=== PATIENT | female | born 1950 | race Caucasian/White ===

== ENCOUNTER 2019-07-23 13:23 | Inpatient (IN) | payer MEDICARE, OTHER, SELFPAY ==
[2019-07-11 14:57] VITALS: BP 168/70; PULSE 85; RESP 18; TEMP 36.6; O2SAT 98; BMI 36.8
[2019-07-22] VITALS (12 sets, daily range): BP systolic 108–148; BP diastolic 64–80; PULSE 80–104; RESP 16–22; TEMP 36.5–37.3; O2SAT 93–100
[2019-07-22] MEDS: LACTATED RINGERS 1,000 ML 30 ML IV CONT ×2 (09:45→13:06)
[2019-07-22 09:56] LABS: Glucose Point of Care 108 (65-105)
--- NOTE | 2019-07-22 10:05 | WPDANESEPPF ---
Anes - Initial Pre Proc Eval Procedure: Operation Date: 07/22/19 11:00 Proposed Procedures p Right Total Knee Arthroplasty - Rogelio Salinas MD Date/Time: 07/22/19 10:05 Surgeon: Rogelio Salinas MD Pre Op Diagnosis: OA Right Knee Patient Data Age: 69 Gender: F Height: 1.52 m Weight: 83.5 kg Last Vital Signs Temp 36.6 C 07/11/19 14:57 Pulse 85 07/11/19 14:57 Resp 18 07/11/19 14:57 BP 168/70 H 07/11/19 14:57 Pulse Ox 98 07/11/19 14:57 Allergies Allergy/AdvReac Type Severity Reaction Status Date / Time No Known Allergies Allergy Verified 07/22/19 09:25 Home Medications Medication Instructions Recorded Confirmed Type acetaminophen [Tylenol Arthritis 650 mg PO Q12H PRN 07/11/19 07/22/19 History Pain] amlodipine 10 mg PO DAILY 07/11/19 07/22/19 History atorvastatin 80 mg PO DAILY 07/11/19 07/22/19 History budesonide-formoterol [Symbicort] 2 puff INHALATION Q12H 07/11/19 07/22/19 History hydrochlorothiazide 50 mg PO DAILY 07/11/19 07/22/19 History insulin glargine [Lantus U-100 10 unit SUBCUT HS 07/11/19 07/22/19 History Insulin] lisinopril 40 mg PO DAILY 07/11/19 07/22/19 History metformin 500 mg PO BID 07/11/19 07/22/19 History montelukast 10 mg PO HS 07/11/19 07/22/19 History oxybutynin chloride 15 mg PO HS 07/11/19 07/22/19 History ropinirole 2 mg PO HS 07/11/19 07/22/19 History venlafaxine 75 mg PO DAILY 07/11/19 07/22/19 History Laboratory Tests 07/22/19 09:53 POC Capillary Glucose 108 mg/dl mg/dl (65-105) ECG: SINUS RHYTHM LEFT AXIS DEVIATION POOR R WAVE PROGRESSION, ANTERIOR LEADS BASELINE ARTIFACT- I, II, AVR, V5-V6 BORDERLINE ECG Other Studies: Negative stress test Patient hx anesthesia problems: none Family hx anesthesia problems: none [facility] Past Medical History Medical History (Updated 07/22/19 @ 10:07 by Moy Linn DO) AAA (abdominal aortic aneurysm) stable - monitored COPD (chronic obstructive pulmonary disease) never smoker, secondary to asthma CVA (cerebral vascular accident) 09/2018 - affected peripheral vision Diabetes type 2, controlled Hyperlipidemia Hypertension FELICIA (obstructive sleep apnea) CPAP PUD (peptic ulcer disease) RLS (restless legs syndrome) Surgical History Surgical History (Updated 07/21/19 @ 15:34 by Moy Linn DO) History of Social History Social History Gender identity (if verbalized by the patient): Female Anes - Eval Final PreProcedure Day of Procedure 07/22/19 10:05 Patient weight: obese Heart: regular rate and rhythm Lungs: clear to auscultation and normal air movement Airway: Mallampati scale class III Neurological: alert and oriented Last oral intake: >/= 8 hours ASA classification: III Emergent: no Anesthetic plan: proceed Anesthesia type and monitoring: general LMA and standard monitoring Informed Consent: The patient's anesthetic plan and its attendant risks and benefits were discussed with the patient/family/POA. Questions were solicited and answers provided to the satisfaction of the patient/family/POA.
--- NOTE | 2019-07-22 10:08 | WPDANESPNB ---
Anes - Peripheral Nerve Block Date/Time: 07/22/19 10:08 I have discussed with the patient/family/POA the placement of a peripheral nerve block for post-operative pain management, including associated risks, benefits, complications, and side effects. Alternative methods of post-operative analgesia were detailed. Questions were solicited and answers provided to the satisfaction of the patient/family/POA. Time-Out: A pre-procedural Time-Out was completed immediately before starting the procedure and confirmed: Patient Identification, Site, Procedure, Patient Position and the Availability of Requisite Equipment. Clinical Indications: Acute post-operative pain management requested by the operative surgeon. Nerve Block Insertion Note Anes-nerve block: adductor canal right Patient position: supine Skin prep: chlorhexidine Needle: 22 gauge, stimulating, insulated echogenic needle. Needle length: 80 mm Technique: ultrasound Injectate: bupivacaine 0.5% with epi 5 mcg/ml (30cc) Observations: tolerated well Complications: none Procedure start time:: 1109 Procedure end time:: 111
--- NOTE | 2019-07-22 10:54 | SUR.PREOP ---
Resting without needs or complaints.
--- NOTE | 2019-07-22 11:04 | WPDHPUPDATE1 ---
History and Physical Update Update Date/Time: 07/22/19 11:04 History and Physical has been reviewed, including an updated exam of the patient. There are NO changes in the patient's condition. Risks, benefits, and alternatives have been discussed and questions answered. Patient agrees to proceed with procedure.
[2019-07-22] MEDS: ceFAZolin 2 GM/D5W 50 ML 2 GM/50 ML BAG IVPB (11:15)
[2019-07-22] MEDS: GENTAMICIN BONE CEMENT REFOBACIN 1 EACH TOPICAL (12:14)
--- NOTE | 2019-07-22 12:31 | PM.PROC ---
Procedure Note - Detailed Date of procedure: 07/22/19 Pre-op diagnosis: OA Right Knee Post-op diagnosis: same Procedure performed: [side] total knee arthroplasty Description of procedure: The patient was brought to the operating room. General anesthetic was administered. Placed on the operating table and sterilely prepped and draped in usual manner. A longitudinal incision was made. Tourniquet inflated to 300 mmHg for a total of [time] minutes. Dissection carried down to the fascia. Medial parapatellar incision was made and the patella subluxated laterally. Patella cut from [25] to [25] mm and sized for a [34] mm button. The tibia cut perpendicular to the long axis and femur cut in 5 degrees of valgus, a [62.5] femur trialed. [63] tibia was felt to fit the best. The soft tissue balanced, hemostasis obtained. All [address], [] tibia, [62.5] femur, [34] mm patella, and [34] mm poly. Motion was 0-125 degrees with good stablility and flexion and extension. The wound was closed with #2 vicryl, 2-0 Vicryl and laurent. Anesthesia: GETA Surgeon: Rogelio Salinas MD Learning Support Resource Room Teacher: Carrillo Connors Estimated blood loss (mL): 200 Drains: No Packing: No Pathology: none sent Complications: No immediate complications Condition: stable Disposition: PACU Findings: arthritis
--- NOTE | 2019-07-22 13:23 | SUR.PHASEI ---
1315; XRAYS DONE AT BEDSIDE
[2019-07-22 13:37] LABS: Glucose Point of Care 117 (65-105)
--- NOTE | 2019-07-22 13:48 | SUR.PHASEI ---
1345; SAO2 DROPS TO 85% ON ROOM AIR. RESP EVEN UNLABORED. P,W,D. O2 3L NC APPLIED.
--- NOTE | 2019-07-22 14:30 | PC.NURSE ---
This patient, Xin Rios, was admitted to [address] [facility] Surg Room 322-01. Patient/family oriented to hospital policies and general routines including ID bracelet, bed and alarms, visiting hours, pain management, procedures, bathroom and other care routines, personal items, smoking policy, room service/diet, and visiting hours. Valuables list has been completed. Information on how to activate the Rapid Response Team has been discussed. Patient/Family are encouraged to report perceived risks to care and to ask questions if they do not understand what they are told or what they should do.
--- NOTE | 2019-07-22 14:57 | PM.PROC ---
Procedure Note - Detailed Date of procedure: 07/22/19 Pre-op diagnosis: OA Right Knee Post-op diagnosis: same Procedure performed: [side] total knee arthroplasty Description of procedure: The patient was brought to the operating room. General anesthetic was administered. Placed on the operating table and sterilely prepped and draped in usual manner. A longitudinal incision was made. Tourniquet inflated to 300 mmHg for a total of [time] minutes. Dissection carried down to the fascia. Medial parapatellar incision was made and the patella subluxated laterally. Patella cut from [23] to [13] mm and sized for a [34] mm button. The tibia cut perpendicular to the long axis and femur cut in 5 degrees of valgus, a [62.5] femur trialed. [63] tibia was felt to fit the best. The soft tissue balanced, hemostasis obtained. All [address], [63] tibia, [62.5] femur, [34] mm patella, and [11] mm poly Posterior stabilized. Motion was 0-125 degrees with good stablility and flexion and extension. The wound was closed with #2 vicryl, 2-0 Vicryl and laurent. Anesthesia: GETA Surgeon: Rogelio Salinas MD Environmental Conservation Officer: Carrillo Connors Estimated blood loss (mL): 200 Drains: No Packing: No Pathology: none sent Complications: No immediate complications Condition: stable Disposition: PACU Findings: arthritis When putting in the femur, she seemed unstable, so I removed the Cruciate Retaining femoral component and placed a posterior stabilized component. This eliminated the posterior medial instability that didn't seem to be present when I trialed them
[2019-07-22] MEDS: SODIUM CHLORIDE 0.9% IV 1,000 ML 125 ML IV CONT (15:57)
[2019-07-22] MEDS: DOCUSATE SODIUM 100 MG CAPSULE PO (15:58)
[2019-07-22] MEDS: metFORMIN HCL 500 MG TABLET PO (15:59)
--- NOTE | 2019-07-22 16:00 | PM.IMCN ---
Assessment and Plan Assessment and plan (1) Status post total right knee replacement: Code(s): Z96.651 - Presence of right artificial knee joint Status: Acute Assessment and Plan: Postop care per Dr. Salinas. Management per Dr. Salinas. DVT prophylaxis per Dr. Salinas. Patient has been placed on Xarelto. Patient stated that she will go home and have the assistance of her family. (2) Diabetes type 2, controlled: Code(s): E11.9 - Type 2 diabetes mellitus without complications Status: Chronic Assessment and Plan: I did add sliding scale insulin and we can check her A1c. Patient has been restarted on her metformin per Ortho. Please monitor her BMP closely as she does appear to be somewhat dry today. Continue with her glargine. (3) Depression: Code(s): F32.9 - Major depressive disorder, single episode, unspecified Status: Chronic Assessment and Plan: Patient stated that is under control now with Effexor. (4) COPD (chronic obstructive pulmonary disease): Code(s): J44.9 - Chronic obstructive pulmonary disease, unspecified Status: Chronic Assessment and Plan: Continue with her inhaler and Singulair (5) FELICIA (obstructive sleep apnea): Code(s): G47.33 - Obstructive sleep apnea (adult) (pediatric) Status: Chronic Assessment and Plan: Titrate CPAP. (6) Hyperlipidemia: Code(s): E78.5 - Hyperlipidemia, unspecified Status: Chronic Assessment and Plan: Continue with Lipitor (7) Hypertension: Code(s): I10 - Essential (primary) hypertension Status: Chronic Assessment and Plan: Continue with amlodipine, lisinopril, and her hydrochlorothiazide per ortho HPI Data of Consult Consult date: 07/22/19 Requesting Physician: Rogelio Salinas MD Primary Care Provider: Jyoti Giraldo Consult Narrative Narrative: Xin Rios is a 69 year old female who suffers with severe osteoarthritis that is chronic and ongoing pain to the right knee. The patient has difficulty ambulating due to the discomfort she cannot stand or walk for long periods of time. Her pain has been increasing over time. She has tried conservative measures including cortisone therapy and anti-inflammatories without relief. She has advanced osteoarthritis. Patient presented today for a right total knee arthroplasty per Dr. Salinas please see his surgical notes. Date of consult is 07/22/2019 Review of Systems Review of Systems: All systems reviewed & are unremarkable except as noted in HPI and below Constitutional: Constitutional: Reports as per HPI and Reports no additional constitutional complaints Eyes: Eyes: Reports as per HPI and Reports no additional eye complaints ENT: Reports system reviewed and no additional complaints, except as documented and Reports Normal hearing present Cardiovascular: Cardiovascular: Reports no additional cardiovascular complaints Respiratory: Respiratory: Reports no additional respiratory complaints and Reports no additional respiratory complaints Gastrointestinal: Gastrointestinal: Reports as per HPI and Reports no additional gastrointestinal complaints Musculoskeletal: Musculoskeletal: Reports no additional musculoskeletal complaints Integumentary/Breasts: Skin/Breast: Reports system reviewed and no additional complaints, except as docu and Reports as per HPI Neurologic: Reports system reviewed and no additional complaints, except as documented, Reports as per HPI and Reports Normal hearing present Psychiatric: Psychiatric: Reports no additional psychiatric complaints and Reports as per HPI Endocrine: Endocrine: Reports no additional endocrine complaints Hematologic/Lymphatic: Hematologic/Lymphatic: Reports no additional hematologic/lymphatic complaints Allergic/Immunologic: Allergic/Immunologic: Reports no additional allergic/immunologic complaints PMFSH Past Medical History
[2019-07-22] MEDS: MORPHINE SULFATE 4 MG/ML INJ IV PUSH (18:46)
[2019-07-22 21:02] LABS: Glucose Point of Care 80 (65-105)
[2019-07-22] MEDS: RIVAROXABAN 10 MG TABLET PO (22:09)
[2019-07-22] MEDS: MONTELUKAST SODIUM 10 MG TABLET PO (22:09)
[2019-07-22 22:31] LABS: Glucose Point of Care 117 (65-105)
[2019-07-22] MEDS: INSULIN GLARGINE (*BKC) 100 UNITS/ML 10 UNITS SUB-Q (22:41)
[2019-07-23] VITALS (14 sets, daily range): BP systolic 128–148; BP diastolic 66–76; PULSE 79–110; RESP 18–22; TEMP 36.7–37.4; O2SAT 81–98
--- NOTE | ~2019-07-23 | US_ITS ---
EXAMINATION: US thyroid DATE: 07/25/2019 15:52 INDICATION: Goiter. TECHNIQUE: Multiple ultrasound images of the thyroid were obtained. COMPARISON: Chest CT 07/25/2019 FINDINGS: The right thyroid lobe measures 5.1 x 3.0 x 2.5 cm. The left thyroid lobe measures 4.5 x 2.7 x 2.2 c m. The thyroid is diffusely heterogeneous and nodular without normal intervening parenchyma. Vascula rity is normal. IMPRESSION: 1. Diffusely heterogeneous thyroid, likely not clinically significant. Reviewed, dictated and finalized at location B. ER [facility]
--- NOTE | ~2019-07-23 | CT_ITS ---
EXAMINATION: CTA chest PE protocol DATE: 07/25/2019 12:01 INDICATION: Shortness of breath. Chest tightness. TECHNIQUE: Computed tomography angiography (CTA) of the chest was performed with 100 mL Omnipaque-350 intravenous contrast timed to evaluate the pulmonary arteries. Coronal maximum intensity projection 3D-reconstructions were created by the technologist. Automated exposure control and iterative reconst ruction technique were employed. The dose-length product was 518.13 mGy-cm. COMPARISON: CT abdomen and pelvis 08/25/2017 FINDINGS: The lungs demonstrate mild atelectasis. No pleural effusion. There are nodules in the thyro id measuring up to 1.9 cm. The heart size is normal. There are coronary artery calcifications. No per icardial effusion. The central pulmonary arteries are enlarged, consistent with pulmonary arterial hy pertension. There is no pulmonary embolus. The gallbladder is distended. There is cortical thinning o f the kidneys. There is severe thoracic spondylosis. IMPRESSION: 1. No pulmonary embolus. Sensitivity is mildly decreased by motion artifact and suboptimal contrast t iming. 2. Multinodular goiter. Consider thyroid ultrasound for risk stratification. 3. Gallbladder distention, which may be secondary to fasting. Correlate with physical exam to exclude acute cholecystitis. Reviewed, dictated and finalized at location B. ESS CONTROL TECH IMPRESSION: 1. No pulmonary embolus. Sensitivity is mildly decreased by motion artifact and suboptimal contrast timing. 2. Multinodular goiter. Consider thyroid ultrasound for risk stratification. 3. Gallbladder distention, which may be secondary to fasting. Correlate with ph ysical exam to exclude acute cholecystitis.
--- NOTE | ~2019-07-23 | XR_ITS ---
EXAMINATION: XR chest 2V EXAM DATE: 07/23/2019 20:03 INDICATION: Chest tightness, hypoxia. History COPD. TECHNIQUE: Frontal and lateral projections of the chest obtained and reviewed. There is no prior misa dy for comparison. FINDINGS: The lungs are clear. There are no pleural effusions. The cardiomediastinal silhouette is within normal limits. There is no pneumothorax suspected. The bones and soft tissues are unremarkab le. IMPRESSION: No acute cardiopulmonary findings. Reviewed, dictated and finalized at location A. OMIC ADVISER
--- NOTE | ~2019-07-23 | XR_ITS ---
EXAMINATION: XR knee RT 2V DATE: 07/22/2019 13:22 INDICATION: Postoperative evaluation following right total knee arthroplasty. TECHNIQUE: Anteroposterior and lateral views of the right knee were obtained. COMPARISON: None. FINDINGS: Right total knee arthroplasty with patellar resurfacing appears well seated and in near anatomic alig nment. No fractures identified. Skin laurent and expected postoperative subcutaneous and intra-iván cular gas. IMPRESSION: 1. Right total knee arthroplasty, negative for postoperative purposes. Reviewed, dictated and finalized at location A. 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
[2019-07-23 06:08] LABS: Basophils Percent Auto 0.2 % (0.2-1.2); Eosinophils Percent Auto 0.1 % (0-4.4); Hematocrit 33.9 % (37.0-47.0); Hemoglobin 10.9 g/dL (12.0-15.0); Immature Granulocyte Absolute 0.03 K/mm3 (0.00-0.031); Immature Granulocyte Percent A 0.3 % (0-0.5); Lymphocytes Absolute Auto 0.99 K/mm3 (0.9-3.2); Mean Corpuscular HGB Conc 32.2 g/dl (32-36); Mean Corpuscular Hemoglobin 29.5 pg (26-34); Mean Corpuscular Volume 91.6 fl (80-100); Mean Platelet Volume 9.9 fl (7.4-10.4); Monocytes Absolute Auto 1.1 K/mm3 (0.1-0.6); Monocytes Percent Auto 12.2 % (2.6-8.5); Neutrophils Absolute Auto 6.9 K/mm3 (1.3-6.7); Neutrophils Percent Auto 76.2 % (45.5-73.1); Platelet Count Result 186 k/mm3 (150-375); Red Cell Distribution Width 13.8 % (11.5-14.5)
[2019-07-23 06:21] LABS: Blood Urea Nitrogen 22 mg/dL (7-17); Calcium 8.5 mg/dL (8.4-10.2); Carbon Dioxide 29 mmol/L (22-30); Chloride 93 mmol/L (98-107); Estimated CRCL calculation 55 ml/min; Estimated Glomerular Filt Rate > 60; Glucose 149 mg/dL (65-105); Potassium 3.4 mmol/L (3.4-5.0); Sodium 133 mmol/L (137-145)
[2019-07-23 07:15] LABS: Hemoglobin A1C 6.8 % (<5.7)
[2019-07-23 07:43] LABS: Glucose Point of Care 145 (65-105)
--- NOTE | 2019-07-23 08:05 | WPDANESPN ---
Anes - Prog Note Post-Op Date/Time: 07/23/19 08:05 Cardiovascular status: normal Respiratory status: normal Airway patency: baseline Mental status: baseline Post-Op hydration status: normal Vital Signs: Last Vital Signs Temp 98.5 F 07/23/19 05:53 Pulse 87 07/23/19 08:20 Resp 20 07/23/19 05:53 BP 146/66 H 07/23/19 08:20 Pulse Ox 88 L 07/23/19 08:20 Pain Score (VAS): pt reports PNB receded around 0200. rating pain 9 at this time I/O: Intake & Output 07/22/19 07/23/19 07/23/19 23:59 07:59 15:59 Intake Total 530 1450 Output Total 200 Balance 530 1250 Laboratory Tests 07/23/19 05:51 07/23/19 05:51 07/11/19 07/11/19 07/22/19 15:04 15:22 09:53 WBC RBC Hgb Hct MCV MCH MCHC RDW Plt Count MPV Immature Gran % (Auto) Neut % (Auto) Lymph % (Auto) [place] % (Auto) Eos % (Auto) Baso % (Auto) Lymph # (Auto) [place] # (Auto) Eos # (Auto) Baso # (Auto) Abs Immat Gran (auto) Absolute Neuts (auto) Absolute Nucleated RBC Nucleated RBC % Sodium Potassium Chloride Carbon Dioxide BUN Creatinine Estim Creat Clear Calc Estimated GFR Glucose POC Capillary Glucose 108 Hemoglobin A1c Calcium Blood Type TNP Antibody Screen TNP Enhanced Crossmatch See Detail See Detail 07/22/19 07/22/19 07/22/19 13:34 20:55 22:15 WBC RBC Hgb Hct MCV MCH MCHC RDW Plt Count MPV Immature Gran % (Auto) Neut % (Auto) Lymph % (Auto) [place] % (Auto) Eos % (Auto) Baso % (Auto) Lymph # (Auto) [place] # (Auto) Eos # (Auto) Baso # (Auto) Abs Immat Gran (auto) Absolute Neuts (auto) Absolute Nucleated RBC Nucleated RBC % Sodium Potassium Chloride Carbon Dioxide BUN Creatinine Estim Creat Clear Calc Estimated GFR Glucose POC Capillary Glucose 117 H 80 117 H Hemoglobin A1c Calcium Blood Type Antibody Screen Enhanced Crossmatch 07/23/19 07/23/19 07/23/19 05:51 05:51 05:51 WBC 9.0 RBC 3.70 L Hgb 10.9 L Hct 33.9 L MCV 91.6 MCH 29.5 MCHC 32.2 RDW 13.8 Plt Count 186 MPV 9.9 Immature Gran % (Auto) 0.3 Neut % (Auto) 76.2 H Lymph % (Auto) 11.0 L [place] % (Auto) 12.2 H Eos % (Auto) 0.1 Baso % (Auto) 0.2 Lymph # (Auto) 0.99 [place] # (Auto) 1.1 H Eos # (Auto) 0.0 Baso # (Auto) 0.0 Abs Immat Gran (auto) 0.03 Absolute Neuts (auto) 6.9 H Absolute Nucleated RBC 0.0 Nucleated RBC % 0.0 Sodium 133 L Potassium 3.4 Chloride 93 L Carbon Dioxide 29 BUN 22 H Creatinine 0.80 Estim Creat Clear Calc 55 Estimated GFR > 60 Glucose 149 H POC Capillary Glucose Hemoglobin A1c 6.8 H Calcium 8.5 Blood Type Antibody Screen Enhanced Crossmatch 07/23/19 07:36 WBC RBC Hgb Hct MCV MCH MCHC RDW Plt Count MPV Immature Gran % (Auto) Neut % (Auto) Lymph % (Auto) [place] % (Auto) Eos % (Auto) Baso % (Auto) Lymph # (Auto) [place] # (Auto) Eos # (Auto) Baso # (Auto) Abs Immat Gran (auto) Absolute Neuts (auto) Absolute Nucleated RBC Nucleated RBC % Sodium Potassium Chloride Carbon Dioxide BUN Creatinine Estim Creat Clear Calc Estimated GFR Glucose POC Capillary Glucose 145 H Hemoglobin A1c Calcium Blood Type Antibody Screen Enhanced Crossmatch Post-procedural complaints: none Patient Feedback: Patient satisfied with anesthetic care.
[2019-07-23] MEDS: MORPHINE SULFATE 4 MG/ML INJ IV PUSH (08:12)
[2019-07-23] MEDS: DOCUSATE SODIUM 100 MG CAPSULE PO ×2 (09:02→18:15)
[2019-07-23] MEDS: metFORMIN HCL 500 MG TABLET PO ×2 (09:03→18:15)
[2019-07-23] MEDS: VENLAFAXINE HCL XR 75 MG CAP.ER.24H PO (09:03)
[2019-07-23] MEDS: hydroCHLOROthiazide 25 MG TABLET 50 MG PO (09:03)
[2019-07-23] MEDS: AMLODIPINE BESYLATE 5 MG TABLET 10 MG PO (09:04)
[2019-07-23] MEDS: ATORVASTATIN 40 MG TABLET 80 MG PO (09:04)
[2019-07-23] MEDS: lisinopriL 20 MG TABLET 40 MG PO (09:05)
[2019-07-23] MEDS: CELECOXIB 200 MG CAPSULE PO ×2 (09:08→18:15)
--- NOTE | 2019-07-23 09:32 | PM.PNORT ---
Progress Note: A&P Additional Plan Pt stable, will adjust some pain meds, add Celebrex BID prn, encouraged to push thru pain and engage in PT as rod, will keep overnignt again and follow, cont med mgmt and PT OT, hopefully will DC tomorrow Time Spent With Patient Time with patient: less than 15 minutes Subjective Subjective Date/Time Seen: 07/23/19 09:32 Pt having some pain control issues and didnt make much progress in PT this am, also some O2 sats were a bit low, no other complaints now tho, looks ok otherwise Exam Narrative: Exam Narrative: VSS afebrile wound dressing clean and dry calves benign NV intact Objective Data Vital Signs Vital Signs: Vital Signs - 24 hr 07/22/19 10:05 07/22/19 13:06 07/22/19 13:20 Temperature 37.1 C 36.6 C Pulse Rate 80 104 H 90 Respiratory Rate 18 18 20 Blood Pressure 140/80 148/78 H 142/67 H Pulse Oximetry 100 100 99 07/22/19 13:35 07/22/19 13:50 07/22/19 14:05 Temperature Pulse Rate 96 92 94 Respiratory Rate 22 H 16 18 Blood Pressure 127/72 130/75 132/66 Pulse Oximetry 100 96 96 07/22/19 14:30 07/22/19 14:45 07/22/19 15:12 Temperature 36.5 C Pulse Rate 95 99 Respiratory Rate 18 18 Blood Pressure 118/65 118/64 Pulse Oximetry 99 95 95 07/22/19 15:15 07/22/19 18:43 07/22/19 22:00 Temperature 36.7 C 37.3 C Pulse Rate 97 93 86 Respiratory Rate 20 19 16 Blood Pressure 108/64 118/66 117/68 Pulse Oximetry 99 99 93 07/23/19 01:39 07/23/19 01:42 07/23/19 02:00 Temperature 37.3 C Pulse Rate 96 92 Respiratory Rate 21 H 18 Blood Pressure 141/76 H Pulse Oximetry 94 92 07/23/19 05:53 07/23/19 06:52 07/23/19 08:20 Temperature 36.9 C Pulse Rate 84 87 Respiratory Rate 20 Blood Pressure 135/76 146/66 H Pulse Oximetry 92 93 88 L 07/23/19 09:00 Temperature Pulse Rate Respiratory Rate Blood Pressure Pulse Oximetry 92 Intake/Output Intake/Output: Intake & Output 07/20/19 07/21/19 07/22/19 07/23/19 23:59 23:59 23:59 23:59 Intake Total 1130 1450 Output Total 200 Balance 1130 1250 Meds/Results Medications: Active Medications Generic Name Dose Route Start Last Admin Trade Name Freq PRN Reason Stop Dose Admin Acetaminophen 650 mg 07/22/19 12:33 Tylenol Tablet PO Q12H PRN Headache Hydrocodone Bitart/Acetaminophen 1 tab 07/22/19 14:33 07/23/19 06:49 [place] 5-325 Mg PO 1 tab Q4H PRN Administration Moderate Pain (4-6) Amlodipine Besylate 10 mg 07/23/19 09:00 07/23/19 09:04 Norvasc PO 10 mg DAILY SEBASTIÁN Administration Atorvastatin Calcium 80 mg 07/23/19 09:00 07/23/19 09:04 Lipitor PO 80 mg DAILY SEBASTIÁN Administration Budesonide/Formoterol Fumarate 2 puff 07/22/19 20:00 07/23/19 08:37 Symbicort 160-4.5 Mcg (*Sp) Inhaler INHALATION 2 puff Q12HRT SEBASTIÁN Administration Celecoxib 200 mg 07/23/19 08:00 07/23/19 09:08 Celebrex PO 200 mg BIDWM SEBASTIÁN Administration Dextrose 12.5 gm 07/22/19 16:17 Dextrose 50% Syringe IV PUSH PRN PRN Hypoglycemia Protocol Docusate Sodium 100 mg 07/22/19 17:00 07/23/19 09:02 Colace Cap PO 100 mg BID SEBASTIÁN Administration Glucagon 1 mg 07/22/19 16:17 Glucagon For Inj IM PRN PRN Hypoglycemia Protocol Glucose 15 gm 07/22/19 16:17 Glutose 15 PO PRN PRN Hypoglycemia Protocol Hydrochlorothiazide 50 mg 07/23/19 09:00 07/23/19 09:03 Hydrochlorothiazide PO 50 mg DAILY SEBASTIÁN Administration Cefazolin Sodium 1 gm in 50 mls @ 100 mls/hr 07/22/19 19:00 07/23/19 03:04 Ancef 1 Gm/D5w 50 Ml Pm IVPB 07/23/19 11:29 Infused Q8H SEBASTIÁN Infusion Dextrose 1,000 mls @ 100 mls/hr 07/22/19 16:17 Dextrose 5% 1,000 Ml IVPB PRN PRN Hypoglycemia Protocol Insulin Aspart 2 - 5 units 07/22/19 17:00 07/22/19 16:38 Novolog SUB-Q Not Given TIDWM SEBASTIÁN Protocol Insulin Glargine 10 units 07/22/19 21:00 07/22/19 22:41 Lantus
[2019-07-23 11:04] LABS: Glucose Point of Care 140 (65-105)
--- NOTE | 2019-07-23 14:09 | PM.IMPN ---
Progress Note: A&P Assessment and Plan (1) Acute and chronic respiratory failure with hypoxia: Code(s): J96.21 - Acute and chronic respiratory failure with hypoxia Status: Acute Assessment and Plan: Since the patient's right knee surgery yesterday she has been intermittently hypoxic. This morning she was 88% on room air and was placed on 2 L via nasal cannula. She was slowly weaned off and again the nurse found her at 84% on room air. At this time her oxygen saturation is 91-92% on room air. Patient's temperature was 99.3? F which is not uncommon to have a slight elevation of temperature postop. The patient does report feeling shortness of breath today and reporting a dry cough for the last 3 weeks. Patient also history of COPD. At this time I will check a chest x-ray to rule out any pneumonia or underlying cause for her hypoxia. I ordered DuoNeb treatments and encourage incentive spirometer use 10 times every hour. Will continue monitoring the patient's symptoms and try and wean her off the oxygen. If the patient continues to have symptoms and workup so far is negative I will consider a CT chest with contrast to rule out a PE. (2) Status post total right knee replacement: Code(s): Z96.651 - Presence of right artificial knee joint Status: Acute Assessment and Plan: Postop care per Dr. Salinas. Management per Dr. Salinas. DVT prophylaxis per Dr. Salinas and has been placed on Xarelto. Patient stated that she will go home and have the assistance of her family. Postop day 1-the patient does not feel well today. He reports increased pain to her right knee. Will continue PT and OT daily and see how she does tomorrow. Will continue monitoring the patient's symptoms. Dr. Salinas's input is greatly appreciated. (3) Diabetes type 2, controlled: Code(s): E11.9 - Type 2 diabetes mellitus without complications Status: Chronic Assessment and Plan: The patient's hemoglobin A1c was 6.8. Patient has been restarted on her metformin and glargine. Serum glucose this morning was 149. Stable. Continue monitoring glucose ACHS. Sliding scale NovoLog. Hypoglycemic protocol in place. (4) Depression: Code(s): F32.9 - Major depressive disorder, single episode, unspecified Status: Chronic Assessment and Plan: Patient stated that is under control now with Effexor. (5) COPD (chronic obstructive pulmonary disease): Code(s): J44.9 - Chronic obstructive pulmonary disease, unspecified Status: Chronic Assessment and Plan: Continue with her inhaler and Singulair Patient is having some intermittent hypoxia and shortness of breath. I will start her on some DuoNeb treatments q.6 hours. Continue monitoring. (6) FELICIA (obstructive sleep apnea): Code(s): G47.33 - Obstructive sleep apnea (adult) (pediatric) Status: Chronic Assessment and Plan: Titrate CPAP. (7) Hyperlipidemia: Code(s): E78.5 - Hyperlipidemia, unspecified Status: Chronic Assessment and Plan: Continue with Lipitor (8) Hypertension: Code(s): I10 - Essential (primary) hypertension Status: Chronic Assessment and Plan: Continue with amlodipine, lisinopril, and her hydrochlorothiazide per ortho Patient blood pressure has been slightly elevated today at 140 systolic. This is most likely secondary to pain. Continue monitor patient's BP at this time. Make adjustments if necessary. Time Spent With Patient Time with patient: 25 - 35 minutes Subjective Date/time seen
--- NOTE | 2019-07-23 14:43 | PC.NURSE ---
On 07/23/19, the student, [Adrienne Lopez ], provided care and completed [facility] documentation on this patient. I have reviewed the student's documentation and agree with the findings.
--- NOTE | 2019-07-23 15:33 | PC.NURSE ---
On 07/23/19, the student, [Suzette Marin ], provided care and completed [facility] documentation on this patient. I have reviewed the student's documentation and agree with the findings.
[2019-07-23 17:57] LABS: Glucose Point of Care 146 (65-105)
[2019-07-23] MEDS: RIVAROXABAN 10 MG TABLET PO (18:16)
[2019-07-23] MEDS: MONTELUKAST SODIUM 10 MG TABLET PO (20:14)
[2019-07-23] MEDS: IPRATROPIUM BR 0.02% INH SOLN 0.5 MG/2.5 ML VIAL INHALATION (20:46)
[2019-07-23] MEDS: ALBUTEROL SULFATE NEB 2.5 MG/0.5 ML INH INHALATION (20:46)
[2019-07-24] VITALS (16 sets, daily range): BP systolic 128–137; BP diastolic 55–62; PULSE 75–105; RESP 16–22; TEMP 36.9–37.2; O2SAT 90–99
[2019-07-24] MEDS: ALBUTEROL SULFATE NEB 2.5 MG/0.5 ML INH INHALATION ×5 (01:43→23:55)
[2019-07-24] MEDS: IPRATROPIUM BR 0.02% INH SOLN 0.5 MG/2.5 ML VIAL INHALATION ×5 (01:43→23:55)
[2019-07-24 02:05] LABS: Glucose Point of Care 115 (65-105)
[2019-07-24 06:40] LABS: Basophils Percent Auto 0.2 % (0.2-1.2); Hematocrit 31.2 % (37.0-47.0); Hemoglobin 10.1 g/dL (12.0-15.0); Immature Granulocyte Absolute 0.04 K/mm3 (0.00-0.031); Immature Granulocyte Percent A 0.4 % (0-0.5); Lymphocytes Absolute Auto 0.93 K/mm3 (0.9-3.2); Lymphocytes Percent Auto 10.1 % (18.3-44.2); Mean Corpuscular HGB Conc 32.4 g/dl (32-36); Mean Corpuscular Hemoglobin 29.4 pg (26-34); Mean Platelet Volume 9.7 fl (7.4-10.4); Monocytes Absolute Auto 1.1 K/mm3 (0.1-0.6); Monocytes Percent Auto 12.4 % (2.6-8.5); Neutrophils Absolute Auto 7.1 K/mm3 (1.3-6.7); Neutrophils Percent Auto 76.9 % (45.5-73.1); Platelet Count Result 177 k/mm3 (150-375); Red Blood Count 3.43 M/mm3 (4.2-5.4); Red Cell Distribution Width 13.7 % (11.5-14.5); White Blood Count 9.2 K/mm3 (4.5-10.0)
[2019-07-24 06:56] LABS: Blood Urea Nitrogen 16 mg/dL (7-17); Calcium 8.9 mg/dL (8.4-10.2); Carbon Dioxide 33 mmol/L (22-30); Chloride 93 mmol/L (98-107); Estimated CRCL calculation 55 ml/min; Estimated Glomerular Filt Rate > 60; Glucose 146 mg/dL (65-105); Potassium 3.3 mmol/L (3.4-5.0); Sodium 135 mmol/L (137-145)
[2019-07-24] MEDS: DOCUSATE SODIUM 100 MG CAPSULE PO ×2 (08:00→17:43)
[2019-07-24] MEDS: CELECOXIB 200 MG CAPSULE PO ×2 (08:50→17:40)
[2019-07-24] MEDS: AMLODIPINE BESYLATE 5 MG TABLET 10 MG PO (08:51)
[2019-07-24] MEDS: ATORVASTATIN 40 MG TABLET 80 MG PO (08:51)
[2019-07-24] MEDS: VENLAFAXINE HCL XR 75 MG CAP.ER.24H PO (08:52)
[2019-07-24] MEDS: lisinopriL 20 MG TABLET 40 MG PO (08:52)
[2019-07-24] MEDS: metFORMIN HCL 500 MG TABLET PO ×2 (08:52→17:40)
[2019-07-24] MEDS: hydroCHLOROthiazide 25 MG TABLET 50 MG PO (08:52)
[2019-07-24] MEDS: POTASSIUM CHLORIDE 20 MEQ TABLET 40 MEQ PO (09:02)
[2019-07-24 11:38] LABS: Glucose Point of Care 105 (65-105)
[2019-07-24 12:22] LABS: Add Urine Microscopic? YES; Appearance Urine Cloudy (Clear); Bilirubin Urine Negative (Negative); Blood Urine 2+ (Negative); Color Urine Yellow (Yellow); Glucose Urine UA Negative (Negative); Ketones Urine Negative (Negative); Leukocyte Esterase Ur Negative LEU/UL (Negative); Mucus Urine Rare /lpf; Nitrate Urine Negative (Negative); Protein Urine 2+ mg/dL (Negative); RBC Urine 21-50 /hpf (0-2); Specific Grav Ur 1.024 (1.001-1.035); Squamous Epithelial Cell Urine Many /hpf (Few); Urobilinogen Urine Negative mg/dL (<2.0)
--- NOTE | 2019-07-24 13:37 | PM.IMPN ---
Progress Note: A&P Assessment and Plan (1) Acute and chronic respiratory failure with hypoxia: Code(s): J96.21 - Acute and chronic respiratory failure with hypoxia Status: Acute Assessment and Plan: Since the patient's right knee surgery 07/22/2019 she has been intermittently hypoxic. Patient also history of COPD. This morning she was 90% on room air The patient does feel short of breath, feels like she is wheezing and slight chest tightness like she cannot catch a deep breath. I switched her Duoneb treatments to Q4hrs while awake to see if this helps with her breathing. Patients CXR showed no acute abnormality. Encourage incentive spirometer use 10 times every hour. Due to patients continued SOB, chest tightness and lightheadedness with ambulation today I will order a CTA Chest to rule out PE. Will continue monitoring the patient's symptoms and try and wean her off the oxygen. (2) Status post total right knee replacement: Code(s): Z96.651 - Presence of right artificial knee joint Status: Acute Assessment and Plan: Postop care per Dr. Salinas. Management per Dr. Salinas. DVT prophylaxis per Dr. Salinas and has been placed on Xarelto. Patient stated that she will go home and have the assistance of her family. Postop day 2-the patient feels lightly better than yesterday after working with therapy. He reports increased pain to her right knee. Will continue PT and OT daily and see how she does tomorrow. Will continue monitoring the patient's symptoms. Dr. Salinas's input is greatly appreciated. (3) Diabetes type 2, controlled: Code(s): E11.9 - Type 2 diabetes mellitus without complications Status: Chronic Assessment and Plan: The patient's hemoglobin A1c was 6.8. Patient has been restarted on her metformin and glargine. Serum glucose this morning was 146. Stable. Continue monitoring glucose ACHS. Sliding scale NovoLog. Hypoglycemic protocol in place. (4) Depression: Code(s): F32.9 - Major depressive disorder, single episode, unspecified Status: Chronic Assessment and Plan: Patient stated that is under control now with Effexor. (5) COPD (chronic obstructive pulmonary disease): Code(s): J44.9 - Chronic obstructive pulmonary disease, unspecified Status: Chronic Assessment and Plan: Continue with her inhaler and Singulair Patient is having some intermittent hypoxia and shortness of breath. I will switch DuoNeb treatments q.4 hours while wake. Continue monitoring. (6) FELICIA (obstructive sleep apnea): Code(s): G47.33 - Obstructive sleep apnea (adult) (pediatric) Status: Chronic Assessment and Plan: Titrate CPAP. (7) Hyperlipidemia: Code(s): E78.5 - Hyperlipidemia, unspecified Status: Chronic Assessment and Plan: Continue with Lipitor (8) Hypertension: Code(s): I10 - Essential (primary) hypertension Status: Chronic Assessment and Plan: Continue with amlodipine, lisinopril, and her hydrochlorothiazide per ortho Patient blood pressure has been slightly elevated today at 130 systolic. This is most likely secondary to pain. Continue monitor patient's BP at this time. Make adjustments if necessary. Subjective Date/time seen: 07/24/19 13:37 Interval history: Date of service 07/24/2019: The patient is feeling much pain to her right knee at this time since she has had therapy twice today. She just requested another pain medication. Status post arthroplasty 07/22/[address] Salinas. She
--- NOTE | 2019-07-24 16:03 | PM.PNORT ---
Progress Note: A&P Additional Plan Pt stable POD #2, cont med mgmt, pt improving with pain control measures and doing better in PT, will DC tomorrow if cleared medically and cont to rod PT, pt agrees with plan, will follow Time Spent With Patient Time with patient: less than 15 minutes Subjective Subjective Date/Time Seen: 07/24/19 16:03 Pt stable POD #2, still some respiratory issues and dropping O2 sats, no distress now, does ok with nasal O2, otherwise pain doing better today, rod PT better Objective Data Vital Signs Vital Signs: Vital Signs - 24 hr 07/23/19 20:47 07/23/19 20:56 07/23/19 21:35 Temperature 37.1 C Pulse Rate 79 82 85 Respiratory Rate 20 20 18 Blood Pressure 128/76 Pulse Oximetry 98 07/23/19 22:22 07/24/19 01:43 07/24/19 01:54 Temperature Pulse Rate 89 77 79 Respiratory Rate 22 H 22 H Blood Pressure Pulse Oximetry 95 07/24/19 06:00 07/24/19 07:50 07/24/19 07:54 Temperature 37.2 C Pulse Rate 80 105 H Respiratory Rate 16 18 Blood Pressure 137/62 Pulse Oximetry 99 91 07/24/19 08:00 07/24/19 08:05 07/24/19 08:56 Temperature Pulse Rate 103 H Respiratory Rate 18 Blood Pressure Pulse Oximetry 90 90 07/24/19 14:30 07/24/19 14:39 Temperature Pulse Rate 89 93 Respiratory Rate 16 16 Blood Pressure Pulse Oximetry Intake/Output Intake/Output: Intake & Output 07/21/19 07/22/19 07/23/19 07/24/19 23:59 23:59 23:59 23:59 Intake Total 1130 2700 150 Output Total 200 400 Balance 1130 2500 -250 Meds/Results Medications: Active Medications Generic Name Dose Route Start Last Admin Trade Name Freq PRN Reason Stop Dose Admin Acetaminophen 650 mg 07/22/19 12:33 Tylenol Tablet PO Q12H PRN Headache Hydrocodone Bitart/Acetaminophen 1 - 2 tab 07/23/19 11:09 07/24/19 13:27 [place] 5-325 Mg PO 2 tab Q4H PRN Administration Moderate Pain (4-6) Albuterol 2.5 mg 07/24/19 13:35 07/24/19 14:29 Albuterol Sulf Neb 2.5mg/0.5ml INHALATION 2.5 mg Q4HRT SEBASTI[place]N Administration Amlodipine Besylate 10 mg 07/23/19 09:00 07/24/19 08:51 Norvasc PO 10 mg DAILY SEBASTIÁN Administration Atorvastatin Calcium 80 mg 07/23/19 09:00 07/24/19 08:51 Lipitor PO 80 mg DAILY SEBASTIÁN Administration Budesonide/Formoterol Fumarate 2 puff 07/22/19 20:00 07/24/19 07:49 Symbicort 160-4.5 Mcg (*Sp) Inhaler INHALATION 2 puff Q12HRT SEBASTIÁN Administration Celecoxib 200 mg 07/23/19 08:00 07/24/19 08:50 Celebrex PO 200 mg BIDWM [place]N Administration Dextrose 12.5 gm 07/22/19 16:17 Dextrose 50% Syringe IV PUSH PRN PRN Hypoglycemia Protocol Docusate Sodium 100 mg 07/22/19 17:00 07/23/19 18:15 Colace Cap PO 100 mg BID SEBASTIÁN Administration Glucagon 1 mg 07/22/19 16:17 Glucagon For Inj IM PRN PRN Hypoglycemia Protocol Glucose 15 gm 07/22/19 16:17 Glutose 15 PO PRN PRN Hypoglycemia Protocol Hydrochlorothiazide 50 mg 07/23/19 09:00 07/24/19 08:52 Hydrochlorothiazide PO 50 mg DAILY SEBASTIÁN Administration Dextrose 1,000 mls @ 100 mls/hr 07/22/19 16:17 Dextrose 5% 1,000 Ml IVPB PRN PRN Hypoglycemia Protocol Insulin Aspart 2 - 5 units 07/22/19 17:00 07/24/19 12:18 Novolog SUB-Q Not Given TIDWM [facility] Protocol Insulin Glargine 10 units 07/22/19 21:00 07/23/19 20:22 Lantus SUB-Q Not Given HS SEBASTIÁN Ipratropium [place] 0.5 mg 07/24/19 13:40 07/24/19 14:29 Atrovent Neb INHALATION 0.5 mg Q4HRT SEBASTI[place]N Administration Lisinopril 40 mg 07/23/19 09:00 07/24/19 08:52 Prinivil PO 40 mg DAILY SEBASTIÁN Administration Metformin HCl 500 mg 07/22/19 17:00 07/24/19 08:52 Glucophage PO 500 mg BIDWM [place] Administration Montelukast Sodium 10 mg 07/22/19 21:00 07/23/19 20:14 Singulair PO 10 mg HS SEBASTIÁN Administration Morphine Sulfate 4 mg 07/22/19 14:33 07/23/19 08:12 Morp
[2019-07-24] MEDS: RIVAROXABAN 10 MG TABLET PO (17:40)
[2019-07-24 18:00] LABS: Glucose Point of Care 116 (65-105)
[2019-07-24] MEDS: MONTELUKAST SODIUM 10 MG TABLET PO (20:00)
[2019-07-25] VITALS (20 sets, daily range): BP systolic 105–121; BP diastolic 52–67; PULSE 84–122; RESP 16–20; TEMP 36.8–36.9; O2SAT 90–100
[2019-07-25 00:40] LABS: Glucose Point of Care 141 (65-105)
[2019-07-25] MEDS: IPRATROPIUM BR 0.02% INH SOLN 0.5 MG/2.5 ML VIAL INHALATION ×5 (04:41→23:13)
[2019-07-25] MEDS: ALBUTEROL SULFATE NEB 2.5 MG/0.5 ML INH INHALATION ×5 (04:42→23:13)
[2019-07-25 06:09] LABS: Basophils Percent Auto 0.2 % (0.2-1.2); Eosinophils Absolute Auto 0.1 K/mm3 (0-0.3); Eosinophils Percent Auto 0.9 % (0-4.4); Hemoglobin 9.4 g/dL (12.0-15.0); Immature Granulocyte Absolute 0.04 K/mm3 (0.00-0.031); Immature Granulocyte Percent A 0.4 % (0-0.5); Lymphocytes Absolute Auto 1.47 K/mm3 (0.9-3.2); Lymphocytes Percent Auto 16.3 % (18.3-44.2); Mean Corpuscular HGB Conc 32.4 g/dl (32-36); Mean Corpuscular Hemoglobin 29.7 pg (26-34); Mean Corpuscular Volume 91.8 fl (80-100); Mean Platelet Volume 10.2 fl (7.4-10.4); Monocytes Absolute Auto 0.8 K/mm3 (0.1-0.6); Monocytes Percent Auto 9.3 % (2.6-8.5); Neutrophils Absolute Auto 6.6 K/mm3 (1.3-6.7); Neutrophils Percent Auto 72.9 % (45.5-73.1); Platelet Count Result 174 k/mm3 (150-375); Red Blood Count 3.16 M/mm3 (4.2-5.4); Red Cell Distribution Width 13.5 % (11.5-14.5)
[2019-07-25 06:29] LABS: Blood Urea Nitrogen 21 mg/dL (7-17); Calcium 8.9 mg/dL (8.4-10.2); Carbon Dioxide 28 mmol/L (22-30); Chloride 91 mmol/L (98-107); Estimated CRCL calculation 50 ml/min; Estimated Glomerular Filt Rate > 60; Glucose 131 mg/dL (65-105); Magnesium 1.9 mg/dL (1.6-2.3); Potassium 3.2 mmol/L (3.4-5.0); Sodium 132 mmol/L (137-145)
[2019-07-25] MEDS: CELECOXIB 200 MG CAPSULE PO ×2 (08:13→17:24)
[2019-07-25] MEDS: VENLAFAXINE HCL XR 75 MG CAP.ER.24H PO (08:14)
[2019-07-25] MEDS: lisinopriL 20 MG TABLET 40 MG PO (08:14)
[2019-07-25] MEDS: hydroCHLOROthiazide 25 MG TABLET 50 MG PO (08:14)
[2019-07-25] MEDS: DOCUSATE SODIUM 100 MG CAPSULE PO ×2 (08:14→17:24)
[2019-07-25] MEDS: AMLODIPINE BESYLATE 5 MG TABLET 10 MG PO (08:14)
[2019-07-25] MEDS: ATORVASTATIN 40 MG TABLET 80 MG PO (08:14)
--- NOTE | 2019-07-25 11:20 | PCRCNOTE ---
Window of time for administration has passed. See next scheduled administration.
--- NOTE | 2019-07-25 11:52 | PM.PNORT ---
Progress Note: A&P Additional Plan Pt with continuing SOB on exertion, a CT has been ordered to rule out PE, if neg and improving with time, will then DC to home, probably has exacerbation of COPD, pain post op better controlled, will follow Time Spent With Patient Time with patient: less than 15 minutes Subjective Subjective Date/Time Seen: 07/25/19 11:52 Pt doing better with PT and pain control, walked further today in PT but had exacerbation of SOB, on pulse on and O2 now, otherwise in NAD now, looks good up in chair, having hard time with exertion, denies any calf tenderness or LE swelling below knee Exam Narrative: Exam Narrative: VSS afebrile NV intact wound with min bloody drainage, calves benign, nontender, mild-mod swelling post op knee, otherwise benign Objective Data Vital Signs Vital Signs: Vital Signs - 24 hr 07/24/19 14:30 07/24/19 14:39 07/24/19 21:00 Temperature Pulse Rate 89 93 Respiratory Rate 16 16 Blood Pressure Pulse Oximetry 90 07/24/19 21:01 07/24/19 21:13 07/24/19 22:00 Temperature 36.9 C Pulse Rate 89 93 86 Respiratory Rate 16 20 20 Blood Pressure 128/55 L Pulse Oximetry 93 07/24/19 22:05 07/24/19 23:55 07/25/19 00:00 Temperature Pulse Rate 95 83 87 Respiratory Rate 19 20 20 Blood Pressure Pulse Oximetry 92 90 07/25/19 00:06 07/25/19 04:42 07/25/19 04:52 Temperature Pulse Rate 85 97 102 H Respiratory Rate 20 18 18 Blood Pressure Pulse Oximetry 07/25/19 06:00 07/25/19 08:00 07/25/19 11:29 Temperature 36.9 C Pulse Rate 107 H 103 H 100 Respiratory Rate 18 20 Blood Pressure 105/52 L 120/64 Pulse Oximetry 95 93 07/25/19 11:33 Temperature Pulse Rate 96 Respiratory Rate 20 Blood Pressure Pulse Oximetry Intake/Output Intake/Output: Intake & Output 07/22/19 07/23/19 07/24/19 07/25/19 23:59 23:59 23:59 23:59 Intake Total 1130 2700 2090 150 Output Total 200 600 400 Balance 1130 2500 1490 -250 Meds/Results Medications: Active Medications Generic Name Dose Route Start Last Admin Trade Name Freq PRN Reason Stop Dose Admin Acetaminophen 650 mg 07/22/19 12:33 Tylenol Tablet PO Q12H PRN Headache Hydrocodone Bitart/Acetaminophen 1 - 2 tab 07/23/19 11:09 07/25/19 04:27 [place] 5-325 Mg PO 2 tab Q4H PRN Administration Moderate Pain (4-6) Albuterol 2.5 mg 07/24/19 13:35 07/25/19 11:25 Albuterol Sulf Neb 2.5mg/0.5ml INHALATION 2.5 mg Q4HRT [place]BASTI[place]N Administration Amlodipine Besylate 10 mg 07/23/19 09:00 07/25/19 08:14 Norvasc PO 10 mg DAILY SEBASTIÁN Administration Atorvastatin Calcium 80 mg 07/23/19 09:00 07/25/19 08:14 Lipitor PO 80 mg DAILY SEBASTIÁN Administration Budesonide/Formoterol Fumarate 2 puff 07/22/19 20:00 07/25/19 11:25 Symbicort 160-4.5 Mcg (*Sp) Inhaler INHALATION 2 puff Q12HRT SEBASTIÁN Administration Celecoxib 200 mg 07/23/19 08:00 07/25/19 08:13 Celebrex PO 200 mg BIDWM [place]N Administration Dextrose 12.5 gm 07/22/19 16:17 Dextrose 50% Syringe IV PUSH PRN PRN Hypoglycemia Protocol Docusate Sodium 100 mg 07/22/19 17:00 07/25/19 08:14 Colace Cap PO 100 mg BID SEBASTIÁN Administration Glucagon 1 mg 07/22/19 16:17 Glucagon For Inj IM PRN PRN Hypoglycemia Protocol Glucose 15 gm 07/22/19 16:17 Glutose 15 PO PRN PRN Hypoglycemia Protocol Hydrochlorothiazide 50 mg 07/23/19 09:00 07/25/19 08:14 Hydrochlorothiazide PO 50 mg DAILY SEBASTIÁN Administration Dextrose 1,000 mls @ 100 mls/hr 07/22/19 16:17 Dextrose 5% 1,000 Ml IVPB PRN PRN Hypoglycemia Protocol Sodium Chloride 1,000 mls @ 125 mls/hr 07/25/19 11:40 Normal Saline Iv IV CONT .Q8H [facility] Insulin Aspart 2 - 5 units 07/22/19 17:00 07/24/19 17:39 Novolog SUB-Q Not Given TIDWM [facility] Protocol Insulin Glargine 10 units 07/22/19 21:00 07/24/19 20:03 Lantus SUB
[2019-07-25 12:26] LABS: Glucose Point of Care 113 (65-105)
[2019-07-25] MEDS: metFORMIN HCL 500 MG TABLET PO ×2 (12:57→17:24)
--- NOTE | 2019-07-25 14:41 | HOMEO2EVAL ---
Home Oxygen Evaluation RC: Home Oxygen (O2) Evaluation Start: 07/25/19 09:17 Freq: ONCE Status: Active Protocol: RPE Activity Type Activity Date Activity User E-Sign Co-Sign Detail Recorded Client Recorded Date Recorded By Document 07/25/19 14:00 KENNEDY [email or web address] 07/25/19 14:41 KENNEDY Document 07/25/19 14:03 KENNEDY [email or web address] 07/25/19 14:41 KENNEDY Document 07/25/19 14:15 KENNEDY [email or web address] 07/25/19 14:41 KENNEDY 07/25/19 07/25/19 07/25/19 14:00 14:03 14:15 Home O2 Evaluation Test Phase Resting Exercise Resting Oxygen Delivery Room Air Room Air Room Air Pulse Oximetry (90-100 %) 95 91 93 Pulse Rate (60-100 beats/min) 107 H 122 H 98 Home Oxygen Evaluation Comments NO HOME O2 NEEDED AT THIS TIME. Treatment Charges O2 Evaluation
--- NOTE | 2019-07-25 14:41 | PCRCNOTE ---
HOME O2 EVAL DONE, NO HOME O2 NEEDED AT THIS TIME.
--- NOTE | 2019-07-25 15:04 | PM.IMPN ---
Progress Note: A&P Assessment and Plan (1) Acute and chronic respiratory failure with hypoxia: Code(s): J96.21 - Acute and chronic respiratory failure with hypoxia Status: Acute Assessment and Plan: Since the patient's right knee surgery 07/22/2019 she has been intermittently hypoxic. Patient also history of COPD. This morning she was 95% on room air Today the patient reports slight improvement in her breathing and has some improvement after breathing treatments. She still reports feeling short of breath especially this morning, feels like she is wheezing and slight chest tightness like she cannot catch her breath . I continue Duoneb treatments to Q4hrs while awake to see if this helps with her breathing. Patients CXR showed no acute abnormality. CTA of her chest No pulmonary embolus. Sensitivity is mildly decreased by motion artifact and suboptimal contrast timing. Encourage incentive spirometer use 10 times every hour. Home oxygen evaluation completed on the patient which showed she does not require oxygen at rest or with exertion. Due to her continued issues with her breathing we will monitor again overnight with breathing treatments and further evaluation. Will continue monitoring the patient's symptoms and monitoring her oxygenation (2) Abnormal finding on CT scan: Code(s): R93.89 - Abnormal findings on diagnostic imaging of other specified body structures Status: Acute Assessment and Plan: On her CT scan of her chest it showed multinodular goiter. Consider thyroid ultrasound for risk stratification. Since the patient is being admitted into the hospital again overnight I will order a thyroid ultrasound to rule out any acute nodules that may need to be biopsied prior to discharge. Gallbladder distention, which may be secondary to fasting. Correlate with physical exam to exclude acute cholecystitis. On my examination her abdomen was completely benign and no signs of Watters's sign. The patient has not been eating or drinking much because she states the food here is not very good. She denies any nausea, vomiting or abdominal pain at this time. Will continue monitoring the patient's symptoms (3) Status post total right knee replacement: Code(s): Z96.651 - Presence of right artificial knee joint Status: Acute Assessment and Plan: Postop care per Dr. Salinas. Management per Dr. Salinas. DVT prophylaxis per Dr. Salinas and has been placed on Xarelto. Patient stated that she will go home and have the assistance of her family. Postop day 3-the patient feels lightly better than yesterday after working with therapy. Therapy states she has currently met her requirements for discharge after therapy this afternoon. We are currently just waiting on her breathing and she can possibly be discharged tomorrow. Will continue monitoring the patient's symptoms. Dr. Salinas's input is greatly appreciated. (4) Diabetes type 2, controlled: Code(s): E11.9 - Type 2 diabetes mellitus without complications Status: Chronic Assessment and Plan: The patient's hemoglobin A1c was 6.8. Patient has been restarted on her metformin and glargine. Serum glucose this morning was 131. Stable. Continue monitoring glucose ACHS. Sliding scale NovoLog. Hypoglycemic protocol in place. (5) Depression: Code(s): F32.9 - Major depressive disorder, single episode, unspecified Status: Chronic Assessment and Plan: Patient stated that is under control now with Effexor. (6) COPD (chronic obstructive pulmonary disease): Code(s): J44.9 - Chronic obstructive pulmonary disease, unspecified Status: Chronic Assessment and P
[2019-07-25] MEDS: RIVAROXABAN 10 MG TABLET PO (17:24)
[2019-07-25 17:28] LABS: Glucose Point of Care 90 (65-105)
[2019-07-25] MEDS: MONTELUKAST SODIUM 10 MG TABLET PO (21:28)
[2019-07-25] MEDS: INSULIN GLARGINE (*BKC) 100 UNITS/ML 10 UNITS SUB-Q (21:35)
[2019-07-25 22:03] LABS: Glucose Point of Care 181 (65-105)
[2019-07-26 02:45] VITALS: PULSE 91; RESP 18
[2019-07-26] MEDS: ALBUTEROL SULFATE NEB 2.5 MG/0.5 ML INH INHALATION ×2 (02:45→08:33)
[2019-07-26] MEDS: IPRATROPIUM BR 0.02% INH SOLN 0.5 MG/2.5 ML VIAL INHALATION ×2 (02:45→08:33)
[2019-07-26 02:48] VITALS: PULSE 91; RESP 18; O2SAT 92
[2019-07-26 02:52] VITALS: PULSE 92; RESP 18
[2019-07-26 06:00] VITALS: BP 127/67; PULSE 95; RESP 20; TEMP 37.1; O2SAT 99
[2019-07-26 06:28] LABS: Basophils Percent Auto 0.3 % (0.2-1.2); Eosinophils Absolute Auto 0.1 K/mm3 (0-0.3); Hematocrit 28.4 % (37.0-47.0); Hemoglobin 9.1 g/dL (12.0-15.0); Immature Granulocyte Absolute 0.04 K/mm3 (0.00-0.031); Immature Granulocyte Percent A 0.6 % (0-0.5); Lymphocytes Absolute Auto 1.56 K/mm3 (0.9-3.2); Lymphocytes Percent Auto 23.6 % (18.3-44.2); Mean Corpuscular Hemoglobin 29.3 pg (26-34); Mean Corpuscular Volume 91.3 fl (80-100); Mean Platelet Volume 9.8 fl (7.4-10.4); Monocytes Absolute Auto 0.8 K/mm3 (0.1-0.6); Monocytes Percent Auto 11.3 % (2.6-8.5); Neutrophils Absolute Auto 4.1 K/mm3 (1.3-6.7); Neutrophils Percent Auto 62.2 % (45.5-73.1); Platelet Count Result 250 k/mm3 (150-375); Red Blood Count 3.11 M/mm3 (4.2-5.4); Red Cell Distribution Width 13.6 % (11.5-14.5); White Blood Count 6.6 K/mm3 (4.5-10.0)
[2019-07-26 06:52] LABS: Alanine Aminotransferase 18 U/L (4-35); Albumin Level 3.7 g/dL (3.5-5.1); Alkaline Phosphatase 80 U/L (38-126); Aspartate Amino Transferase 25 U/L (14-36); Bilirubin,Total 0.6 mg/dL (0.2-1.3); Blood Urea Nitrogen 24 mg/dL (7-17); Calcium 9.1 mg/dL (8.4-10.2); Carbon Dioxide 33 mmol/L (22-30); Chloride 89 mmol/L (98-107); Estimated CRCL calculation 50 ml/min; Estimated Glomerular Filt Rate > 60; Glucose 112 mg/dL (65-105); Potassium 3.2 mmol/L (3.4-5.0); Sodium 133 mmol/L (137-145)
[2019-07-26 07:13] LABS: Thyroid Stimulating Hormone 0.571 uIU/mL (0.465-4.680)
[2019-07-26 07:49] LABS: Magnesium 2.1 mg/dL (1.6-2.3)
[2019-07-26 07:51] LABS: Glucose Point of Care 120 (65-105)
[2019-07-26] MEDS: metFORMIN HCL 500 MG TABLET PO (07:53)
[2019-07-26] MEDS: AMLODIPINE BESYLATE 5 MG TABLET 10 MG PO (07:53)
[2019-07-26] MEDS: VENLAFAXINE HCL XR 75 MG CAP.ER.24H PO (07:53)
[2019-07-26] MEDS: POTASSIUM CHLORIDE 20 MEQ TABLET 40 MEQ PO (07:53)
[2019-07-26] MEDS: ATORVASTATIN 40 MG TABLET 80 MG PO (07:53)
[2019-07-26] MEDS: hydroCHLOROthiazide 25 MG TABLET 50 MG PO (07:53)
[2019-07-26] MEDS: lisinopriL 20 MG TABLET 40 MG PO (07:53)
[2019-07-26] MEDS: CELECOXIB 200 MG CAPSULE PO (07:53)
[2019-07-26] MEDS: DOCUSATE SODIUM 100 MG CAPSULE PO (07:56)
[2019-07-26 08:33] VITALS: PULSE 88; RESP 18; O2SAT 98
[2019-07-26 08:43] VITALS: PULSE 90; RESP 18
--- NOTE | 2019-07-26 11:01 | P.DS_ITS ---
DS: Diagnosis Admitting Diagnosis Admitting Diagnosis: Unilateral primary osteoarthritis, unspecified knee Discharge Diagnosis (1) Acute and chronic respiratory failure with hypoxia: Code(s): J96.21 - Acute and chronic respiratory failure with hypoxia Status: Acute Assessment and Plan: Since the patient's right knee surgery 07/22/2019 she has been intermittently hypoxic. * Patient also history of COPD. * Patients CXR showed no acute abnormality. * CTA of her chest No pulmonary embolus. Sensitivity is mildly decreased by motion artifact and suboptimal contrast timing. * Home oxygen evaluation completed on the patient which showed she does not require oxygen at rest or with exertion. * This morning she was 99% on room air * Today, she is feeling much better with her breathing. She still has a nonproductive cough but feeling much better overall. * Recommended continue taking her nebulized treatments at home as needed for shortness of breath. * Encourage incentive spirometer use 10 times every hour. * At this time she is stable for discharge home to continue her physical therapy as an outpatient. (2) Multinodular goiter: Code(s): E04.2 - Nontoxic multinodular goiter Status: Acute Assessment and Plan: On her CT scan of her chest it showed multinodular goiter. Consider thyroid ultrasound for risk stratification. * Thyroid ultrasound showed Diffusely heterogeneous thyroid, likely not clinically significant. * TSH was normal this morning. * Will have her follow-up with her primary care provider for further evaluation and treatment. (3) Abnormal finding on CT scan: Code(s): R93.89 - Abnormal findings on diagnostic imaging of other specified body structures Status: Acute Assessment and Plan: Gallbladder distention, which may be secondary to fasting. Correlate with physical exam to exclude acute cholecystitis. * On my examination her abdomen was completely benign and no signs of Watters's sign. * The patient has not been eating or drinking much because she states the food here is not very good. * She denies any nausea, vomiting or abdominal pain at this time. * Patient's liver enzymes are completely normal. * Will have her follow-up with her primary care provider for further evaluation and treatment but not believe she has acute cholecystitis. (4) Status post total right knee replacement: Code(s): Z96.651 - Presence of right artificial knee joint Status: Acute Assessment and Plan: Postop care per Dr. Salinas. Management per Dr. Salinas. DVT prophylaxis per Dr. Salinas and has been placed on Xarelto. Patient stated that she will go home and have the assistance of her family. * Postop day 4. * From a therapy standpoint she is stable for discharge. * She will follow-up with PT as an outpatient starting Sunday. (5) Diabetes type 2, controlled: Code(s): E11.9 - Type 2 diabetes mellitus without complications Status: Chronic Assessment and Plan: The patient's hemoglobin A1c was 6.8. Patient has been restarted on her metformin and glargine. * Serum glucose this morning was 112. Stable. * She will continue her home medications and monitor her glucose. (6) Depression: Code(s): F32.9 - Major depressive disorder, single episode, unspecified Status: Chronic
--- NOTE | 2019-07-26 11:14 | PM.IMPN ---
Progress Note: A&P Assessment and Plan (1) Acute and chronic respiratory failure with hypoxia: Code(s): J96.21 - Acute and chronic respiratory failure with hypoxia Status: Acute Assessment and Plan: Since the patient's right knee surgery 07/22/2019 she has been intermittently hypoxic. Patient also history of COPD. Patients CXR showed no acute abnormality. CTA of her chest No pulmonary embolus. Sensitivity is mildly decreased by motion artifact and suboptimal contrast timing. Home oxygen evaluation completed on the patient which showed she does not require oxygen at rest or with exertion. This morning she was 99% on room air Today, she is feeling much better with her breathing. She still has a nonproductive cough but feeling much better overall. Recommended continue taking her nebulized treatments at home as needed for shortness of breath. Encourage incentive spirometer use 10 times every hour. At this time she is stable for discharge home to continue her physical therapy as an outpatient. (2) Multinodular goiter: Code(s): E04.2 - Nontoxic multinodular goiter Status: Acute Assessment and Plan: On her CT scan of her chest it showed multinodular goiter. Consider thyroid ultrasound for risk stratification. Thyroid ultrasound showed Diffusely heterogeneous thyroid, likely not clinically significant. TSH was normal this morning. Will have her follow-up with her primary care provider for further evaluation and treatment. (3) Abnormal finding on CT scan: Code(s): R93.89 - Abnormal findings on diagnostic imaging of other specified body structures Status: Acute Assessment and Plan: Gallbladder distention, which may be secondary to fasting. Correlate with physical exam to exclude acute cholecystitis. On my examination her abdomen was completely benign and no signs of Watters's sign. The patient has not been eating or drinking much because she states the food here is not very good. She denies any nausea, vomiting or abdominal pain at this time. Patient's liver enzymes are completely normal. Will have her follow-up with her primary care provider for further evaluation and treatment but not believe she has acute cholecystitis. (4) Status post total right knee replacement: Code(s): Z96.651 - Presence of right artificial knee joint Status: Acute Assessment and Plan: Postop care per Dr. Salinas. Management per Dr. Salinas. DVT prophylaxis per Dr. Salinas and has been placed on Xarelto. Patient stated that she will go home and have the assistance of her family. Postop day 4. From a therapy standpoint she is stable for discharge. She will follow-up with PT as an outpatient starting Sunday. (5) Diabetes type 2, controlled: Code(s): E11.9 - Type 2 diabetes mellitus without complications Status: Chronic Assessment and Plan: The patient's hemoglobin A1c was 6.8. Patient has been restarted on her metformin and glargine. Serum glucose this morning was 112. Stable. She will continue her home medications and monitor her glucose. (6) Depression: Code(s): F32.9 - Major depressive disorder, single episode, unspecified Status: Chronic Assessment and Plan: Continue Effexor. (7) COPD (chronic obstructive pulmonary disease): Code(s): J44.9 - Chronic obstructive pulmonary disease, unspecified Status: Chronic Assessment and Plan: Continue with her inhaler and Singulair She is feeling better today. She reports having a tough nebulizer treatments at home to take as needed for shortness of breath or wheezing.
--- NOTE | 2019-07-31 13:13 | DS_ITS ---
DATE OF DISCHARGE: The patient underwent total knee arthroplasty on the right postoperatively. She had some medical issues that were addressed by the hospitalist with a slow heart rate. At this point, she is dismissed. Follow up in 10-14 days for sutures out. If she has any changes, center, she will call or discuss them. D I MT: Angelica
--- NOTE | 2019-08-20 07:13 | PM.DS ---
DS: Diagnosis Admitting Diagnosis Admitting Diagnosis: Acute and chronic respiratory failure with hypoxia DS: Summary Time Spent with Patient Time attestation: Total time spent providing and/or coordinating discharge services: Discharge Plan Discharge Attending physician on discharge: Perri Sanders Consulting providers: Geovanni Barrios ; Perri Sanders ; Adina Aguilar ; Carrillo Connors ; Pedro Kyle ; Danny Griffiths V. Discharging Clinician: Rogelio Salinas Anticipated Discharge Date/Time: 07/26/19 11:29 Patient Disposition: Home, Self-Care Activity: follow weight bearing status Diet: diabetic Wound Care Instructions: change dressing daily Discharge Instructions: Follow up with Dr. Salinas in 2 weeks. Dressing change daily - dry gauze and flexnet. Call office @ [phone] if you have any questions or concerns. Perri Sanders PA-C Hospitalist After having your right knee surgery, you were having some shortness of breath issues. We completed a chest x-ray and a CT scan of your chest which showed there is no acute cause of your shortness of breath. This was most likely secondary to her underlying COPD and surgery you just went through. We also had a respiratory therapist evaluate you to see if he need oxygen upon discharge home but this was normal. At this time you're feeling much better and your oxygen was 98% this morning on room air. I recommend continued your breathing treatments as needed for shortness of breath or wheezing. I recommend checking your blood pressure 1-2 times daily and writing it down to show your primary care provider at follow up and allow them to make changes if needed. If you get a headache, feel lightheaded, dizzy or not very well, you should also check your blood pressure. I recommend checking your sugar five times daily, in the morning before you eat, before breakfast, lunch and dinner and before bed at night. You should also check it if you are not feeling well. You should write these down and show them to your Primary Care Provider when you follow up so they can make adjustments if needed. Signs and symptoms of low blood sugar include: Shakiness, dizziness, nausea, confusion, sweating, stomach aches and dizziness. If the symptoms occur you need to check your blood sugar. If it is less than 70, drink some juice with sugar in it or eat some sugary candy. Recheck in 20 minutes. If your blood sugar keeps being low (less than 70), come to the emergency room Follow up with your Primary Care Provider within 1 week of discharge to further evaluate you on your recovery. Return to the ER if you have any new or worsening symptoms of chest pain, shortness of breath, fever, chills, abdominal pain, vomiting, diarrhea or any other concerning symptoms. Good luck with your recovery! Patient Instructions: Pain Management (DC), Knee Replacement (DC) Follow-up/Referrals: Neal,MD Kamaljit [Primary Care Provider] - 1 Week Discharge Medications: New celecoxib [Celebrex] 200 mg Capsule 200 mg PO BIDWM 30 Days Qty: 60 RF: 0 hydrocodone-acetaminophen 5-325 mg Tablet 1 tablet PO Q4H PRN (Reason: Moderate Pain (4-6)) Qty: 50 RF: 0 Xarelto 10 mg Tablet 10 mg PO DAILY@17 Qty: 12 RF: 0 Continued metformin 500 mg Tablet 500 mg PO BID RF: 0 oxybutynin chloride 15 mg Tablet Extended Release 24hr 15 mg PO HS RF: 0 Lantus U-100 Insulin 100 unit/mL Solution 10 unit SUBCUT HS RF: 0 hydrochlorothiazide 50 mg Tablet 50 mg PO DAILY RF: 0 montelukast 10 mg Tablet 10 mg PO HS RF: 0 lisinopril 40 mg Tablet 40 mg PO DAILY RF: 0 Symbicort 160-4.5 mcg/actuation Hfa Aerosol Inhaler 2 puff INHALATION Q12H RF: 0 ropinirole 2 mg Tablet Extended Release 24 Hr 2 mg PO HS RF: 0 venlafaxine 75 mg Tablet Extended Release 24 Hr
--- NOTE | 2019-08-20 11:12 | P.DS_ITS ---
DS: Diagnosis Admitting Diagnosis Admitting Diagnosis: Acute and chronic respiratory failure with hypoxia DS: Summary Time Spent with Patient Time attestation: Total time spent providing and/or coordinating discharge services: Discharge Plan Discharge Attending physician on discharge: Perri Sanders Consulting providers: Geovanni Barrios ; Perri Sanders ; Adina Aguilar ; Carrillo Connors ; Pedro Kyle ; Danny Griffiths V. Discharging Clinician: Rogelio Salinas Anticipated Discharge Date/Time: 07/26/19 11:29 Patient Disposition: Home, Self-Care Activity: follow weight bearing status Diet: diabetic Wound Care Instructions: change dressing daily Discharge Instructions: Follow up with Dr. Salinas in 2 weeks. Dressing change daily - dry gauze and flexnet. Call office @ [phone] if you have any questions or concerns. Perri Sanders PA-C Hospitalist After having your right knee surgery, you were having some shortness of breath issues. We completed a chest x-ray and a CT scan of your chest which showed there is no acute cause of your shortness of breath. This was most likely secondary to her underlying COPD and surgery you just went through. We also had a respiratory therapist evaluate you to see if he need oxygen upon discharge home but this was normal. At this time you're feeling much better and your oxygen was 98% this morning on room air. I recommend continued your breathing treatments as needed for shortness of breath or wheezing. I recommend checking your blood pressure 1-2 times daily and writing it down to show your primary care provider at follow up and allow them to make changes if needed. If you get a headache, feel lightheaded, dizzy or not very well, you should also check your blood pressure. I recommend checking your sugar five times daily, in the morning before you eat, before breakfast, lunch and dinner and before bed at night. You should also check it if you are not feeling well. You should write these down and show them to your Primary Care Provider when you follow up so they can make adjustments if needed. Signs and symptoms of low blood sugar include: Shakiness, dizziness, nausea, confusion, sweating, stomach aches and dizziness. If the symptoms occur you need to check your blood sugar. If it is less than 70, drink some juice with sugar in it or eat some sugary candy. Recheck in 20 minutes. If your blood sugar keeps being low (less than 70), come to the emergency room Follow up with your Primary Care Provider within 1 week of discharge to further evaluate you on your recovery. Return to the ER if you have any new or worsening symptoms of chest pain, shortness of breath, fever, chills, abdominal pain, vomiting, diarrhea or any other concerning symptoms. Good luck with your recovery! Patient Instructions: Pain Management (DC), Knee Replacement (DC) Follow-up/Referrals: Neal,MD Kamaljit [Primary Care Provider] - 1 Week Discharge Medications: New celecoxib [Celebrex] 200 mg Capsule 200 mg PO BIDWM 30 Days Qty: 60 RF: 0 hydrocodone-acetaminophen 5-325 mg Tablet 1 tablet PO Q4H PRN (Reason: Moderate Pain (4-6)) Qty: 50 RF: 0 Xarelto 10 mg Tablet 10 mg PO DAILY@17 Qty: 12 RF: 0 Continued metformin 500 mg Tablet 500 mg PO BID RF: 0 oxybutynin chloride 15 mg Tablet Extended Release 24hr 15 mg PO HS RF: 0 Lantus U-100 Insulin 100 unit/mL Solution 10 unit SUBCUT
--- NOTE | 2019-08-25 11:45 | PM.DS ---
DS: Diagnosis Admitting Diagnosis Admitting Diagnosis: Acute and chronic respiratory failure with hypoxia severe primary osteoarthritis right knee joint status post total knee arthroplasty right performed Dr. Salinas. DS: Summary Time Spent with Patient Time attestation: Total time spent providing and/or coordinating discharge services: Exam Narrative: Exam Narrative: Patient is 4 days status post total knee arthroplasty right knee. Wound is clean and dry vital signs are stable she is afebrile and neurovascularly she is intact calves are benign. Patient is ambulating independently with a walker as tolerated. Lungs are clear auscultation, the patient does have a history of COPD and had some shortness of breath during her hospital stay which was evaluated and treated by the primary care hospitalist. Discharge Plan Discharge Attending physician on discharge: Perri Sanders Consulting providers: Geovanni Barrios ; Perri Sanders ; Adina Aguilar ; Carrillo Connors ; Pedro Kyle ; Danny Griffiths V. Discharging Clinician: Rogelio Salinas Anticipated Discharge Date/Time: 07/26/19 11:29 Patient Disposition: Home, Self-Care Activity: no shower and follow weight bearing status Diet: diabetic Wound Care Instructions: change dressing daily Discharge Instructions: Follow up with Dr. Salinas in 2 weeks. Dressing change daily - dry gauze and flexnet. Call office @ [phone] if you have any questions or concerns. Patient will start outpatient physical therapy at Dr. Salinas office for total knee protocol. She will keep an eye on the dressing changed daily watch or evidence of drainage or infection. The patient will continue with Xarelto 10 mg daily for a total postop course of 2 weeks when this is complete she will start aspirin 325 mg b.i.d. x1 month. She is also discharged with Celebrex 200 mg b.i.d. p.r.n. severe pain and [place] 7 0.5 mg 1 tablet every 3 hr p.r.n. severe pain. Patient will call the office immediately for any further problems difficulties or questions or other treatment course she follow up at 2 weeks postop for staple removal and wound recheck patient on a diabetic diet activity as tolerated otherwise. The patient will resume her previous outpatient medications and follow-up with her primary care physician as instructed with regards to her other medical issues. The patient voiced understanding agrees above plan. Perri Sanders PA-C Hospitalist After having your right knee surgery, you were having some shortness of breath issues. We completed a chest x-ray and a CT scan of your chest which showed there is no acute cause of your shortness of breath. This was most likely secondary to her underlying COPD and surgery you just went through. We also had a respiratory therapist evaluate you to see if he need oxygen upon discharge home but this was normal. At this time you're feeling much better and your oxygen was 98% this morning on room air. I recommend continued your breathing treatments as needed for shortness of breath or wheezing. I recommend checking your blood pressure 1-2 times daily and writing it down to show your primary care provider at follow up and allow them to make changes if needed. If you get a headache, feel lightheaded, dizzy or not very well, you should also check your blood pressure. I recommend checking your sugar five times daily, in the morning before you eat, before breakfast, lunch and dinner and before bed at night. You should also check it if you are not feeling well. You should write these down and show them to your Primary Care Provider when you follow up so they can make adjustments if needed. Signs and symptoms of low blood sugar include: Shakiness, dizziness, nausea, confusion, sweating, stomach aches and dizziness. If the symptoms occur you need to check your blood sugar. If it is less than 70, drink some juice with
== END 2019-07-26 12:05 | disposition home or self-care (01) | DRG 983 ==
LOC: ANHSURGERY 14:48 → ANH3MEDSUR 14:48
PROVIDERS: Nurse Practitioner; Physician Assistant; Admitting Provider Orthopaedic Surgery; PCP Family Medicine; Visit Provider Orthopaedic Surgery
PROC: 0SRC0J9 Replacement of Right Knee Joint with Synthetic Substitute, Cemented, Open Approach (ICD-10-PCS; CPT 27447; principal; 2019-07-22 11:00)
DX: R09.02 Hypoxemia (principal); J44.9 Chronic obstructive pulmonary disease, unspecified; M17.11 Unilateral primary osteoarthritis, right knee; F32.9 Major depressive disorder, single episode, unspecified; G47.33 Obstructive sleep apnea (adult) (pediatric); E78.5 Hyperlipidemia, unspecified; G25.81 Restless legs syndrome; I10 Essential (primary) hypertension; E04.2 Nontoxic multinodular goiter; E11.9 Type 2 diabetes mellitus without complications; I69.398 Other sequelae of cerebral infarction; H53.8 Other visual disturbances; Z87.11 Personal history of peptic ulcer disease; E66.9 Obesity, unspecified; Z68.36 Body mass index [BMI] 36.0-36.9, adult
CPT/HCPCS: 36415; 71046; 71275; 73560; 76536; 80048; 80053; 81001; 83036; 83735; 84443; 85025; 86850; 86900; 86901; 86922; 94618; 94640; 97110; 97116; 97161; 97165; 97530; 97535; A9270; C1713; C1776; G0378; J0131; J0171; J0690; J1815; J1885; J2250; J2270; J2405; J2704; J2795; J3010; J3370; J7030; J7120; Q9967

== ENCOUNTER 2021-06-03 10:15 | Emergency (ER) | payer MEDICARE, OTHER, SELFPAY ==
--- NOTE | ~2021-06-03 | CT_ITS ---
EXAMINATION: CTA chest PE protocol DATE: 06/03/2021 16:51 INDICATION: Chest pain. TECHNIQUE: Computed tomography angiography (CTA) of the chest was performed with 100 mL Omnipaque-350 intravenous contrast timed to evaluate the pulmonary arteries. Coronal maximum intensity projection 3D-reconstructions were created by the technologist. Automated exposure control and iterative reconst ruction technique were employed. The dose-length product was 555.78 mGy-cm. COMPARISON: Chest CT 07/25/2019, thyroid ultrasound 07/25/2019 FINDINGS: The lungs demonstrate mild atelectasis. No pleural effusion. Cardiomegaly is noted. There a re coronary artery calcifications. There is no pulmonary embolus. There is mild mediastinal lymphaden opathy, likely reactive. Again seen is enlargement and heterogeneity of the thyroid, likely not clini braulio significant. There is severe cervical and thoracic spondylosis. IMPRESSION: 1. No pulmonary embolus. 2. Worsened mild mediastinal lymphadenopathy, likely reactive. Reviewed, dictated and finalized at location A. E WASHER PILER
--- NOTE | ~2021-06-03 | XR_ITS ---
XR chest 2V 06/03/2021 11:16 Indication: Cough for 3 days. Shortness of breath. Procedure: 2 view chest Comparison: 07/23/2019 Findings: Heart size normal. No focal air space disease, pulmonary edema, pleural effusion or suspect ed pneumothorax. No acute osseous abnormality. Impression: 1: No acute cardiopulmonary disease. Reviewed, dictated and finalized at location A. OGRAPHER Impression: 1: No acute cardiopulmonary disease.
[2021-06-03 10:30] VITALS: BP 144/69; PULSE 77; RESP 20; TEMP 36.2; O2SAT 98
[2021-06-03 11:05] VITALS: BP 164/101; PULSE 74; RESP 23; O2SAT 97
--- NOTE | 2021-06-03 11:06 | ECG_ITS ---
Measurements Intervals [place] Rate: 65 P: 23 IA: 165 QRS: -4 QRSD: 94 T: 40 QT: 416 QTc: 433 Interpretive Statements SINUS RHYTHM BORDERLINE R WAVE PROGRESSION, ANTERIOR LEADS BASELINE ARTIFACT- I, II, III, AVR, AVL, AVF, V1-V6 BORDERLINE ECG Electronically Signed On 06-03-2021 11:35:34 MANUFACTURING PROCESS TECHNICIAN by Hemal Cabrera D.O.
[2021-06-03 11:32] LABS: Basophils Absolute Auto 0.1 K/mm3 (0.0-0.1); Basophils Percent Auto 0.9 % (0.2-1.2); Eosinophils Absolute Auto 0.2 K/mm3 (0-0.3); Eosinophils Percent Auto 3.8 % (0-4.4); Hemoglobin 12.4 g/dL (12.0-15.0); Immature Granulocyte Absolute 0.02 K/mm3 (0.00-0.031); Immature Granulocyte Percent A 0.3 % (0-0.5); Lymphocytes Absolute Auto 1.37 K/mm3 (0.9-3.2); Lymphocytes Percent Auto 23.9 % (18.3-44.2); Mean Corpuscular HGB Conc 32.6 g/dl (32-36); Mean Corpuscular Hemoglobin 30.1 pg (26-34); Mean Corpuscular Volume 92.2 fl (80-100); Mean Platelet Volume 9.7 fl (7.4-10.4); Monocytes Absolute Auto 0.7 K/mm3 (0.1-0.6); Monocytes Percent Auto 11.7 % (2.6-8.5); Neutrophils Absolute Auto 3.4 K/mm3 (1.3-6.7); Neutrophils Percent Auto 59.4 % (45.5-73.1); Platelet Count Result 240 k/mm3 (150-375); Red Blood Count 4.12 M/mm3 (4.2-5.4); Red Cell Distribution Width 13.4 % (11.5-14.5); White Blood Count 5.7 K/mm3 (4.5-10.0)
[2021-06-03 11:47] LABS: INR 0.8; Prothrombin Time 10.9 Seconds (11.1-14.7)
[2021-06-03 11:48] LABS: Partial Thromboplastin Time 23.4 SECONDS (22.3-36.8)
[2021-06-03 11:56] LABS: NT Pro B Type Natriuretic Pept 126 pg/mL (5-100); Troponin I < 0.012 ng/mL (0.000-0.034)
[2021-06-03 11:58] LABS: Alanine Aminotransferase 26 U/L (4-35); Albumin Level 4.3 g/dL (3.5-5.1); Alkaline Phosphatase 91 U/L (38-126); Anion Gap 8 mmol/L (8-16); Aspartate Amino Transferase 31 U/L (14-36); Bilirubin,Total 0.5 mg/dL (0.2-1.3); Blood Urea Nitrogen 17 mg/dL (7-17); Calcium 9.5 mg/dL (8.4-10.2); Carbon Dioxide 25 mmol/L (22-30); Chloride 104 mmol/L (98-107); Estimated CRCL calculation 72 ml/min; Estimated Glomerular Filt Rate > 60; Glucose 120 mg/dL (65-110); Potassium 4.2 mmol/L (3.4-5.0); Sodium 137 mmol/L (137-145)
[2021-06-03 14:01] LABS: Lipase 76 U/L (23-300)
--- NOTE | 2021-06-03 14:05 | ED.SOB ---
HPI - SOB/Dyspnea General Chief Complaint: Shortness of Breath/Dyspnea Stated Complaint: Cough Time Seen by Provider: 06/03/21 12:01 Source: patient, RN notes reviewed and old records reviewed Mode of arrival: ambulatory Limitations: no limitations History of Present Illness HPI Narrative: This is a 70 year old female with history of COPD who presents for evaluation of worsening cough. Patient reports she developed sore throat, runny nose, cough and congestion. She reports her granddaughter was positive for strep throat so she assumed she had strep throat. She went to [facility] in [place], and she was tested for strep. Her strep was negative but she was prescribed Amoxicillin. She has been taking Amoxicillin for 3 days. She continues to have a cough. Her cough was so bad last night so she came to ER. Mostly her cough is productive with clear phlegm but intermittently is brown and yellow. She reports chest pain since last night that she associates with coughing. She denies fever or chills. She is using albuterol nebulizer at home . Related Data Home Medications Medication Instructions Recorded Confirmed Lantus U-100 Insulin 10 unit SUBCUT HS 07/11/19 07/22/19 amlodipine 10 mg PO DAILY 07/11/19 07/22/19 atorvastatin 80 mg PO DAILY 07/11/19 07/22/19 budesonide-formoterol [Symbicort] 2 puff INHALATION Q12H 07/11/19 07/22/19 hydrochlorothiazide 50 mg PO DAILY 07/11/19 07/22/19 lisinopril 40 mg PO DAILY 07/11/19 07/22/19 metformin 500 mg PO BID 07/11/19 07/22/19 montelukast 10 mg PO HS 07/11/19 07/22/19 oxybutynin chloride 15 mg PO HS 07/11/19 07/22/19 ropinirole 2 mg PO HS 07/11/19 07/22/19 venlafaxine 75 mg PO DAILY 07/11/19 07/22/19 Allergies Allergy/AdvReac Type Severity Reaction Status Date / Time No Known Allergies Allergy Verified 06/03/21 12:22 Review of Systems Review of Systems: All systems reviewed & are unremarkable except as noted in HPI and below PMFSH Past Medical History Medical History (Updated 06/03/21 @ 17:07 by Katelynn Rascon MD) AAA (abdominal aortic aneurysm) stable - monitored Chronic renal failure, stage 3 (moderate) COPD (chronic obstructive pulmonary disease) never smoker, secondary to asthma CVA (cerebral vascular accident) 09/2018 - affected peripheral vision Depression Diabetes type 2, controlled Hyperlipidemia Hypertension Kidney stone Optic neuritis FELICIA (obstructive sleep apnea) CPAP PUD (peptic ulcer disease) Requiring blood transfusion. RLS (restless legs syndrome) Surgical History Surgical History (Updated 07/22/19 @ 16:12 by Adina Aguilar NP) H/O cataract extraction Bilaterally H/O lithotripsy X5 History of History of kidney surgery Right kidney Social History Social History (Updated 07/22/19 @ 16:15 by Adina Aguilar NP) Social History: The patient is and her is a durable power admitted attorneys for healthcare. She desires to be a full code. She has 2 children a son and a daughter. 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 Smoking status: Never smoker Alcohol intake: never Substance use: never Gender identity (if verbalized by the patient): Female Spiritual care concerns: No Agree to blood products: Yes Exam Narrative: GENERAL: Appears to not feel well well-nourished, and in no acute distress. HEAD: Normocephalic, atraumatic EYES: PERRLA and EOMI, conjunctiva clear without discharge EARS: TM's clear bilaterally without erythema or dullness NOSE: Nares clear, no rhinorrhea or epistaxis THROAT:Mucous membranes moist, Oropharynx normal without erythema, exudate, peritonsillar swelling or fluctuance NECK: Supple, without lymphadenopathy or mass RESPIRATORY: No respiratory distress, Airway patent, Respir
[2021-06-03 15:11] LABS: D Dimer 0.68 ug/mL (<0.48)
[2021-06-03 15:13] LABS: Add Urine Microscopic? YES; Appearance Urine Clear (Clear); Bilirubin Urine Negative (Negative); Blood Urine 1+ (Negative); Color Urine Yellow (Yellow); Glucose Urine UA Negative (Negative); Ketones Urine Negative (Negative); Leukocyte Esterase Ur Negative LEU/UL (Negative); Mucus Urine Rare /lpf; Nitrate Urine Negative (Negative); Protein Urine Negative (Negative); Specific Grav Ur 1.016 (1.001-1.035); Squamous Epithelial Cell Urine Rare /hpf (Few); Urobilinogen Urine Negative mg/dL (<2.0)
[2021-06-03 17:17] VITALS: BP 169/88; PULSE 79; RESP 16; O2SAT 99
== END 2021-06-03 17:18 | disposition home or self-care (01) ==
PROVIDERS: Emergency Medicine; Emergency Provider General Practice
DX: J06.9 Acute upper respiratory infection, unspecified (principal); I12.9 Hypertensive chronic kidney disease with stage 1 through stage 4 chronic kidney disease, or unspecified chronic kidney disease; E11.22 Type 2 diabetes mellitus with diabetic chronic kidney disease; I71.4 Abdominal aortic aneurysm, without rupture; N18.30 Chronic kidney disease, stage 3 unspecified; J44.9 Chronic obstructive pulmonary disease, unspecified; F32.A Depression, unspecified; E78.5 Hyperlipidemia, unspecified; G47.33 Obstructive sleep apnea (adult) (pediatric); G25.81 Restless legs syndrome; Z86.73 Personal history of transient ischemic attack (TIA), and cerebral infarction without residual deficits; Z87.442 Personal history of urinary calculi; Z87.11 Personal history of peptic ulcer disease
CPT/HCPCS: 36415; 71046; 71275; 80053; 81001; 83690; 83880; 84484; 85025; 85380; 85610; 85730; 87804; 93005; 99284; Q9967

== ENCOUNTER 2021-10-31 09:07 | Outpatient (CLI) | payer MEDICARE, SELFPAY ==
[2021-10-31 09:49] LABS: Anion Gap 7 mmol/L (8-16); Blood Urea Nitrogen 24 mg/dL (7-17); Calcium 8.9 mg/dL (8.4-10.2); Carbon Dioxide 30 mmol/L (22-30); Chloride 98 mmol/L (98-107); Estimated Glomerular Filt Rate > 60; Glucose 139 mg/dL (65-110); Potassium 3.5 mmol/L (3.4-5.0); Sodium 135 mmol/L (137-145)
== END 2021-10-31 09:08 | disposition home or self-care (01) ==
LOC: ANHLAB 09:09
PROVIDERS: Visit Provider Internal Medicine Cardiovascular Disease
DX: E11.59 Type 2 diabetes mellitus with other circulatory complications (principal); I15.2 Hypertension secondary to endocrine disorders
CPT/HCPCS: 36415; 80048

== ENCOUNTER 2022-02-01 10:49 | Emergency (ER) | payer MEDICARE, SELFPAY ==
--- NOTE | ~2022-02-01 | XR_ITS ---
EXAMINATION: XR chest 2V DATE: 02/01/2022 13:06 INDICATION: Chest pain. Shortness of breath. Cough. COVID-19 positive. TECHNIQUE: Frontal and lateral views of the chest were obtained. COMPARISON: Chest 2 views 06/03/2021, chest CT 06/03/2021 FINDINGS: The chest demonstrates clear lungs without pneumonia, pleural effusion, or pneumothorax. Th e heart size is normal. There is an intrathoracic goiter. IMPRESSION: 1. No acute cardiopulmonary disease. 2. Intrathoracic goiter. Reviewed, dictated and finalized at location A.
[2022-02-01 11:20] VITALS: BP 151/81; PULSE 73; RESP 18; TEMP 36.6; O2SAT 98
--- NOTE | 2022-02-01 11:24 | ECG_ITS ---
Measurements Intervals [place] Rate: 66 P: 57 AL: 167 QRS: -52 QRSD: 97 T: 42 QT: 467 QTc: 493 Interpretive Statements SINUS RHYTHM WITH OCCASIONAL VENTRICULAR PREMATURE COMPLEXES LEFT ANTERIOR FASCICULAR BLOCK PROLONGED QT INTERVAL ABNORMAL ECG COMPARED TO ECG 06/03/2021 11:29:47 LEFT ANTERIOR FASCICULAR BLOCK NOW PRESENT PROLONGED QT INTERVAL NOW PRESENT Electronically Signed On 02-01-2022 12:58:23 CDT by Guy Mark M.D.
[2022-02-01 11:36] LABS: Hematocrit 38.2 % (37.0-47.0); Hemoglobin 12.3 g/dL (12.0-15.0); Immature Granulocyte Absolute 0.01 K/mm3 (0.00-0.031); Immature Granulocyte Percent A 0.3 % (0-0.5); Lymphocytes Absolute Auto 1.43 K/mm3 (0.9-3.2); Lymphocytes Percent Auto 47.5 % (18.3-44.2); Mean Corpuscular HGB Conc 32.2 g/dl (32-36); Mean Corpuscular Hemoglobin 29.2 pg (26-34); Mean Corpuscular Volume 90.7 fl (80-100); Mean Platelet Volume 10.1 fl (7.4-10.4); Monocytes Absolute Auto 0.4 K/mm3 (0.1-0.6); Neutrophils Absolute Auto 1.2 K/mm3 (1.3-6.7); Neutrophils Percent Auto 39.2 % (45.5-73.1); Platelet Count Result 157 k/mm3 (150-375); Red Blood Count 4.21 M/mm3 (4.2-5.4); Red Cell Distribution Width 13.9 % (11.5-14.5)
[2022-02-01 11:48] LABS: Alanine Aminotransferase 29 U/L (6-35); Albumin Level 4.3 g/dL (3.5-5.1); Alkaline Phosphatase 62 U/L (38-126); Anion Gap 10 mmol/L (8-16); Aspartate Amino Transferase 29 U/L (14-36); Bilirubin,Total 0.3 mg/dL (0.2-1.3); Blood Urea Nitrogen 21 mg/dL (7-17); Calcium 9.1 mg/dL (8.4-10.2); Carbon Dioxide 29 mmol/L (22-30); Chloride 98 mmol/L (98-107); Estimated CRCL calculation 49 ml/min; Estimated Glomerular Filt Rate > 60; Glucose 153 mg/dL (65-110); Potassium 3.6 mmol/L (3.4-5.0); Sodium 137 mmol/L (137-145)
--- NOTE | 2022-02-01 14:09 | ED.URI ---
HPI - URI/Sore Throat General Chief Complaint: Upper Respiratory Infection Stated Complaint: sob, covid positive Time Seen by Provider: 02/01/22 13:45 Source: patient Mode of arrival: ambulatory Limitations: no limitations History of Present Illness HPI Narrative: This is a 71 year old female that presents to the ER for cold symptoms present over the last 3 days. Reports fever, cough, sore throat and headache. Has been taking Tylenol with little relief. She was started on Paxlovid and is unable to tolerate it. Reports nausea and vomiting with it. She is COVID vaccinated, has not yet had a booster. Reports shortness of breath. Denies chest pain. Related Data Home Medications Medication Instructions Recorded Confirmed amlodipine 10 mg tablet 10 mg PO DAILY 07/11/19 07/22/19 atorvastatin 80 mg tablet 80 mg PO DAILY 07/11/19 07/22/19 budesonide-formoterol HFA 160 2 puff inhalation Q12H 07/11/19 07/22/19 mcg-4.5 mcg/actuation aerosol inhaler (Symbicort) hydrochlorothiazide 50 mg tablet 50 mg PO DAILY 07/11/19 07/22/19 insulin glargine 100 unit/mL 10 unit subcut HS 07/11/19 07/22/19 subcutaneous solution (Lantus U-100 Insulin) lisinopril 40 mg tablet 40 mg PO DAILY 07/11/19 07/22/19 metformin 500 mg tablet 500 mg PO BID 07/11/19 07/22/19 montelukast 10 mg tablet 10 mg PO HS 07/11/19 07/22/19 oxybutynin chloride 15 mg 15 mg PO HS 07/11/19 07/22/19 tablet,extended release 24 hr ropinirole 2 mg tablet,extended 2 mg PO HS 07/11/19 07/22/19 release 24 hr venlafaxine 75 mg tablet,extended 75 mg PO DAILY 07/11/19 07/22/19 release 24 hr Allergies Allergy/AdvReac Type Severity Reaction Status Date / Time No Known Allergies Allergy Verified 06/03/21 12:22 Review of Systems Review of Systems: CONSTITUTIONAL: Reports fever ENT: Reports congestion, sore throat CARDIOVASCULAR: Denies chest pain RESPIRATORY: Reports cough and dyspnea. All systems reviewed & are unremarkable except as noted in HPI and below PMFSH Past Medical History Medical History (Updated 02/01/22 @ 16:25 by Merly King PA-C) AAA (abdominal aortic aneurysm) stable - monitored Chronic renal failure, stage 3 (moderate) COPD (chronic obstructive pulmonary disease) never smoker, secondary to asthma CVA (cerebral vascular accident) 09/2018 - affected peripheral vision Depression Diabetes type 2, controlled Hyperlipidemia Hypertension Kidney stone Optic neuritis FELICIA (obstructive sleep apnea) CPAP PUD (peptic ulcer disease) Requiring blood transfusion. 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 She desires to be a full code. She has 2 children a son and a daughter. 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 Smoking status: Never smoker Alcohol intake: never Substance use: never Gender identity (if verbalized by the patient): Female Spiritual care concerns: No Agree to blood products: Yes Exam Narrative: GENERAL: Well-appearing, well-nourished, and in no acute distress. HEAD: Normocephalic, atraumatic. EYES: EOMI. ENT: Nares clear, no rhinorrhea or epistaxis. Mucous membranes moist. Oropharynx without tonsillar hypertrophy exudate or other lesions. Bilateral TMs pearly tinsley non-bulging NECK: Supple. No adenopathy or masses. CHEST: Clear to auscultation. No respiratory distress. No wheezes rales or rhonchi HEART: Regular rate and rhythm. No murmur heard.
[2022-02-01 14:52] LABS: Troponin I < 0.012 ng/mL (0.000-0.034)
[2022-02-01 14:55] LABS: D Dimer 0.54 ug/mL (<0.48)
[2022-02-01 16:01] VITALS: BP 140/68; PULSE 78; RESP 18; O2SAT 99
== END 2022-02-01 16:02 | disposition home or self-care (01) ==
PROVIDERS: Physician Assistant; Emergency Provider Emergency Medicine
DX: U07.1 COVID-19 (principal); R94.31 Abnormal electrocardiogram [ECG] [EKG]; I12.9 Hypertensive chronic kidney disease with stage 1 through stage 4 chronic kidney disease, or unspecified chronic kidney disease; E11.22 Type 2 diabetes mellitus with diabetic chronic kidney disease; N18.30 Chronic kidney disease, stage 3 unspecified; Z79.84 Long term (current) use of oral hypoglycemic drugs; J44.9 Chronic obstructive pulmonary disease, unspecified; Z87.442 Personal history of urinary calculi; G47.30 Sleep apnea, unspecified
CPT/HCPCS: 36415; 71046; 80053; 84484; 85025; 85380; 93005; 99284

== ENCOUNTER 2023-02-23 08:36 | Outpatient (CLI) | payer MEDICARE, SELFPAY ==
--- NOTE | ~2023-02-23 | CT_ITS ---
EXAMINATION: CTA abdomen pelvis DATE: 02/23/2023 09:21 INDICATION: Abdominal aortic aneurysm without rupture. TECHNIQUE: Computed tomographic angiography (CTA) of the abdomen and pelvis was performed with 100 mL Omnipaque-350 intravenous contrast. Automated exposure control and iterative reconstruction techniqu e were employed. The dose-length product was 938.97 mGy-cm. Maximum intensity projection 3D-reconstru ctions of the aorta and other arteries were constructed by the technologist on a separate workstation . COMPARISON: CT abdomen and pelvis 08/25/2017 FINDINGS: The visualized portions of the lung bases demonstrate mild atelectasis. No pleural effusion . Cardiomegaly is noted. There are coronary artery calcifications. No pericardial effusion. The liver , gallbladder, spleen, pancreas, and adrenal glands are normal. There is mild atrophy of right kidney and moderate atrophy of left kidney. There are 6 mm, 4 mm, and 1 mm stones in left kidney. There are no dilated loops of bowel. The appendix is normal. 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 There are no pathologically enlarged lym ph nodes. There is no free intraperitoneal fluid. Aortic atherosclerosis is noted. There is a 3.7 cm fusiform infrarenal aortic aneurysm. There is moderate stenosis of celiac axis and mild stenosis of s uperior mesenteric artery. There is mild stenosis of the right renal artery. There is severe stenosis of a second right renal artery. There is severe stenosis of left renal artery. There is severe steno sis of origin of inferior mesenteric artery. There is severe thoracic and lumbar spondylosis. IMPRESSION: 1. 3.7 cm fusiform aneurysm of infrarenal aorta. 2. 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 Reviewed, dictated and finalized at location A.
[2023-02-23 09:14] LABS: Estimated Glomerular Filt Rate 44
== END 2023-02-23 08:37 | disposition home or self-care (01) ==
PROVIDERS: Visit Provider Internal Medicine Cardiovascular Disease
DX: I71.40 Abdominal aortic aneurysm, without rupture, unspecified (principal); N28.0 Ischemia and infarction of kidney
CPT/HCPCS: 74174; Q9967